=== PATIENT | male | born 1935 | race Caucasian/White ===

== ENCOUNTER → 2024-06-05 | Outpatient (CLI) | payer MEDICARE, BC, SELFPAY ==
[2024-06-05 16:47] LABS: INR 2.4 (0.9-1.3); Prothrombin Time 24.7 Seconds (9.0-12.2)
== END | disposition home or self-care (01) ==
LOC: COPL 14:21
PROVIDERS: PCP Family Medicine; Referring Provider Internal Medicine Cardiovascular Disease; Visit Provider Internal Medicine Cardiovascular Disease
DX: I48.20 Chronic atrial fibrillation, unspecified (principal); I10 Essential (primary) hypertension; I25.118 Atherosclerotic heart disease of native coronary artery with other forms of angina pectoris
CPT/HCPCS: 36415; 85610

== ENCOUNTER → 2024-07-30 | Outpatient (CLI) | payer MEDICARE, BC, SELFPAY ==
--- NOTE | 2024-07-30 14:58 | XR_ITS ---
Examination: Shoulder,left, 3 views Technique: Shoulder AP internal rotation, AP external rotation, Y view shoulder, 3 views Exam date and time :July 30, 2024 1501 hours INDICATIONS: Left shoulder pain 20 years. FINDINGS: Prominent osteopenia No shoulder fracture or dislocation Severe narrowing and osteoarthritis glenohumeral joint Mild calcific tendinitis IMPRESSION: Severe narrowing and osteoarthritis glenohumeral joint
--- NOTE | 2024-07-30 14:58 | XR_ITS ---
Examination:Right hip AP, lateral, AP pelvis 3 views Technique: Hip AP lateral, AP pelvis, 3 views Exam date and time:July 30, 2024 1501 hours INDICATIONS: Patient fell 5 months ago with injury to the hips, hip pain FINDINGS: Moderate osteopenia Moderate bilateral hip osteoarthritis No hip or pelvic fracture IMPRESSION: No hip or pelvic fracture.
[2024-07-30 15:29] LABS: Basophils % (Auto) 1 % (0-2.5); Eosinophils # (Auto) 0.1 Thou/mm3 (0.0-0.5); Eosinophils % (Auto) 2 % (0-10); Hematocrit 35.1 % (41.0-53.0); Hemoglobin 11.4 g/dL (13.5-16.0); Immature Granulocytes % (Auto) 0 % (0-0); Immature Granulocytes Auto 0.02 Thou/mm3 (0.00-0.00); Lymphocytes # (Auto) 2.1 Thou/mm3 (1.0-4.8); Lymphocytes % (Auto) 39 % (10-50); Mean Corpuscular HGB Conc 32.5 g/dl (31.0-37.0); Mean Corpuscular Hemoglobin 32.6 pg (25.0-35.0); Mean Corpuscular Volume 100 fL (80-100); Monocytes # (Auto) 0.6 Thou/mm3 (0.0-0.8); Monocytes % (Auto) 10 % (0-12); Neutrophils # (Auto) 2.6 Thou/mm3 (1.8-7.7); Neutrophils % (Auto) 48 % (37-80); Nucleated Red Blood Cell % 0 /100 WBC (0); Platelet Count 195 Thou/mm3 (140-440); RDW Standard Deviation 51.6 fL (35.1-43.9); White Blood Count 5.4 Thou/mm3 (3.8-10.6)
[2024-07-30 15:40] LABS: INR 2.8 (0.9-1.3); Prothrombin Time 28.7 Seconds (9.0-12.2)
== END | disposition home or self-care (01) ==
LOC: COPL 14:24 → CDIM 14:24
PROVIDERS: PCP Family Medicine; Referring Provider Family Medicine; Visit Provider Family Medicine
DX: M25.552 Pain in left hip (principal); M25.551 Pain in right hip; M19.012 Primary osteoarthritis, left shoulder; M25.812 Other specified joint disorders, left shoulder; D50.8 Other iron deficiency anemias; S79.912S Unspecified injury of left hip, sequela; S79.911S Unspecified injury of right hip, sequela; W19.XXXS Unspecified fall, sequela
CPT/HCPCS: 36415; 73030; 73502; 85025; 85610

== ENCOUNTER 2024-08-10 17:14 | Emergency (ER) | payer MEDICARE, BC, SELFPAY ==
--- NOTE | 2024-08-10 18:31 | PD.EDADULT ---
ED General RME/HPI General Stated complaint: HYPOXIA Time Seen by Provider: 08/10/24 18:01 Arrival date/time: 08/10/24 17:14 RME / HPI RME / HPI narrative: 89-year-old male patient with significant history of diabetes mellitus hypertension, chronic A-fib, was brought in by EMS for evaluation regarding hypoxia. Apparently patient is having worsening cough, shortness of breath, when the EMS arrived patient was noted to be satting less than 90%. Patient told me that he feels sick also with flulike symptoms for the last 1 week. He had a history of chronic cough for more than 6 months, getting worst for the last 1 week. Patient denies any chest pain. Denies any other complaints. Was seen by PCP, and was started on doxycycline and Zyrtec today. Related Data Home Medications ?Medication ?Instructions ?Recorded ?Confirmed docusate sodium 100 mg capsule 100 mg PO BID PRN Constipation 11/01/22 11/01/22 glipizide 5 mg tablet 5 mg PO BID 11/01/22 11/01/22 lisinopril 10 mg tablet 10 mg PO DAILY 11/01/22 11/01/22 omeprazole 20 mg capsule,delayed 20 mg PO DAILY 11/01/22 11/01/22 release sennosides 17.2 mg tablet (Senokot 17.2 mg PO BID 11/01/22 11/01/22 Extra Strength) warfarin 2.5 mg tablet 2.5 mg PO DAILY 11/01/22 11/01/22 Allergies Allergy/AdvReac Type Severity Reaction Status Date / Time No Known Allergies Allergy Verified 05/17/23 17:36 Review of Systems Review of Systems Narrative Review of Systems: Review of system reviewed and within normal limits except mentioned in HPI ED Exam Narrative Physical exam: VITAL SIGNS: Reviewed. GENERAL APPEARANCE: Alert and interactive, follows commands, no acute distress, HEAD AND FACE: Non-traumatic. ENT: PERRL, pink conjunctivitis, eyelid no trauma, Mucous membrane moist. NECK: Supple, nontender, no nuchal rigidity. CHEST: No tenderness, no crepitus, no paradoxical movement, no retractions. LUNGS: Clear, well ventilated, symmetric, no rales, no wheezing, no ronchi, no stridor, good breath sounds bilaterally. HEART: Regular rate, regular rhythm, no murmur, no gallops. ABDOMEN: Soft, positive bowel sounds, nondistended, no guarding, nontender, no rebound, no masses, RECTAL: Deferred. GENITAL: Deferred. NEUROLOGICAL: Gross motor function intact sensory function intact, Appropriate for age. MUSCULOSKELETAL: low back nontender, full range of motion. EXTREMITIES: Nontender, full range of motion. SKIN: Color pink, dry, no rash, no lacerations, no abrasions, no contusions. LYMPHATICS: Deferred. Course Quality Measures none Orders Category Date Time Status Bedside COVID-19 Antigen Test NOW Care 08/10/24 18:36 Completed Bedside Influenza A&B Antigen Test NOW Care 08/10/24 18:36 Completed Scrub Technician STAT Care 08/10/24 18:36 Completed Continuous Pulse Oximetry STAT Care 08/10/24 18:36 Completed EKG (ED ONLY) *Do not use* NOW Care 08/10/24 18:36 Completed In and Out Catheter X1PRN Care 08/10/24 18:36 Completed Insert IV NOW Care 08/10/24 18:36 Completed NPO STAT Care 08/10/24 18:36 Completed Strict Intake and Output Routine Care 08/10/24 18:36 Ordered EKG (ED Only) Stat Exams 08/10/24 18:36 Draft XR chest 1V SEPSIS PROTOCOL Stat Exams 08/10/24 18:36 Completed B-Type Natriuretic Peptide Stat Lab 08/10/24 17:49 Completed Blood Culture (Lab) Stat Lab 08/10/24 18:55 Received CBC Stat Lab 08/10/24 17:49 Completed Comprehensive Metabolic Panel Stat Lab 08/10/24 17:49 Completed LDH (Lactate Dehydrogenase) Stat Lab 08/10/24 17:49 Completed Lactate (Lactic Acid) Stat Lab 08/10/24 17:49 Completed Lipase Stat Lab 08/10/24 17:49 Completed Magnesium Stat Lab 08/10/24 17:49 Completed Partial Thromboplastin Time Stat Lab 08/10/24 17:49 Completed Phosphorous Stat Lab 08/10/24 17:49 Completed Procalcitonin Stat Lab 08/10/24 17:49 Completed Prothrombin Time with INR Stat Lab 08/10/24 17:49 Completed Troponin I Stat Lab 08/10/24 17:49 Completed Oxygen Delivery NOW RT 08/10/24 18:36 Completed Vital Signs Vital signs: Vital Signs Temperature 99.7 F 08/10/24 19:08 Pulse Rate 88 08/10/24 19:08 Respiratory Rate 27 H 08/10/24 19:08 Blood Pressure 118/101 H 08/10/24 19:08 Pulse Oximetry (%) 95 08/10/24 19:08 Oxygen Flow Rate 2 08/10/24 19:08 MDM Patient data External records reviewed:: None Clinical information provided by:: patient and family Social determinants that could affect healthcare access:: none Patient has the following chronic illnesses:: Diabetes mellitus hypertension How is presenting disease/condition affected by chronic disease/condition?: exacerbated by Evaluation data The following diagnostics were reviewed and interpreted by me:: lab results, radiology exam(s) and EKG tracing(s) Lab and/or radiology exams considered but not ordered:: None Interpretation Summary: Patient AMA Medications Medications considered but not ordered:: None Medication administrations:: None Consultations Consultation(s) initiated? (list below): No Diagnosis Differential Diagnosis ED Complaint MDM: Shortness of breath, pneumonia, hypoxia Most likely diagnosis given after review of the tests above:: Shortness of breath Admission Indicated Admission indicated?: not indicated Explain why admission is indicated or not indicated:: Patient AMA Admission Request Was there a request for admission?: No Disposition Plan Disposition Plan: other (specify) (Patient AMA) Medical Decision Making MDM Narrative MDM Narrative: 89-year-old male patient with significant history of diabetes mellitus hypertension, chronic A-fib, was brought in by EMS for evaluation regarding hypoxia. Apparently patient is having worsening cough, shortness of breath, when the EMS arrived patient was noted to be satting less than 90%. Patient told me that he feels sick also with flulike symptoms for the last 1 week. He had a history of chronic cough for more than 6 months, getting worst for the last 1 week. Patient denies any chest pain. Denies any other complaints. Was seen by PCP, and was started on doxycycline and Zyrtec today. Pt has normal mental status and adequate capacity to make medical decisions. Oriented x 4. The patient refuses evaluation and treatment and wants to be discharged. The risks have been explained to the patient, including progression of possible worsening of current disease, worsening illness, chronic pain, permanent disability and . The benefits of evaluation and treatment have also been explained, including the availability and proximity of nurses, physicians, monitoring, diagnostic testing, and treatments. The patient was able to understand and state the risks and benefits of AMA.Patient had the opportunity to ask questions about their medical condition. He left hospital against medical advice. Differential Diagnosis Differential Diagnosis: Shortness of breath, pneumonia, hypoxia Lab Data 08/10/24 17:49 08/10/24 17:49 Labs: Lab Results 08/10/24 Range/Units 17:49 WBC 4.6 (3.8-10.6) Thou/mm3 RBC 3.73 L (4.50-5.90) Miln/mm3 Hgb 12.3 L (13.5-16.0) g/dL Hct 37.2 L (41.0-53.0) % MCV 100 (80-100) fL MCH 33.0 (25.0-35.0) pg MCHC 33.1 (31.0-37.0) g/dl RDW Std Deviation 51.0 H (35.1-43.9) fL Plt Count 162 D (140-440) Thou/mm3 Neut % (Auto) 77 (37-80) % Lymph % (Auto) 16 (10-50) % [place] % (Auto) 7 (0-12) % Eos % (Auto) 0 (0-10) % Baso % (Auto) 0 (0-2.5) % Neut # (Auto) 3.5 (1.8-7.7) Thou/mm3 Lymph # (Auto) 0.7 L (1.0-4.8) Thou/mm3 [place] # (Auto) 0.3 (0.0-0.8) Thou/mm3 Eos # (Auto) 0.0 (0.0-0.5) Thou/mm3 Baso # (Auto) 0.0 (0.0-0.2) Thou/mm3 Immature Gran # (Auto) 0.00 (0.00-0.00) Thou/mm3 Absolute Nucleated RBC 0.00 (0.00-0.00) Thou/mm3 Immature Gran % 0 (0-0) % Nucleated RBC % 0 (0) /100 WBC PT 24.8 H D (9.0-12.2) Seconds INR 2.4 H (0.9-1.3) APTT 38.2 H (22.0-36.0) Seconds Sodium 137 (136-145) mMol/L Potassium 4.3 (3.4-5.1) mMol/L Chloride 103 (98-107) mMol/L Carbon Dioxide 25.0 (20.0-31.0) mMol/L Anion Gap 9 (7-16) BUN 26 H (9-23) mg/dL Creatinine 1.1 (0.6-1.3) mg/dL Estim Creat Clear Calc 53.5 L (>60) mL/min eGFR > 60 (60 - ) See Note BUN/Creatinine Ratio 24 H (12-20) Ratio Glucose 152 H (74-106) mg/dL Calculated Osmolality 281 (275-295) Lactic Acid 1.4 (0.4-2.0) mMol/L Calcium 9.3 (8.3-10.6) mg/dL Corrected Calcium 9.3 (8.5-10.1) mg/dL Phosphorus 2.9 (2.4-5.1) mg/dL Magnesium 2.0 (1.6-2.6) mg/dL Total Bilirubin 2.0 H (0.3-1.2) mg/dL AST 46 H (0-34) U/L ALT 39 (10-49) U/L Alkaline Phosphatase 136 H (46-116) U/L Lactate Dehydrogenase 299 H (120-246) U/L Troponin I 0.082 H* (0.0-0.045) ng/mL B-Natriuretic Peptide 714 H* (0-100) pg/mL Total Protein 8.1 (5.7-8.2) gm/dL Albumin 4.5 (3.4-4.8) gm/dL Globulin 3.6 H (2.3-3.5) gm/dL Albumin/Globulin Ratio 1.3 (1.2-2.2) Lipase 26 (12-53) U/L Procalcitonin 0.22 (0.0-0.49) ng/ml Discharge Plan Plan Patient Disposition: Left Against Medical Advice Prescriptions/Referrals Prescriptions/Med Rec: No Action warfarin 2.5 mg tablet 2.5 mg PO DAILY Patient Comments: TAKE 1 TABLET BY MOUTH ONCE DAILY docusate sodium 100 mg capsule 100 mg PO BID PRN (Reason: Constipation) Patient Comments: TAKE 1 CAPSULE BY MOUTH TWICE DAILY NEEDED FOR 30 DAYS omeprazole 20 mg capsule,delayed release(DR/EC) 20 mg PO DAILY Patient Comments: TAKE 1 CAPSULE BY MOUTH ONCE DAILY 30 MINUTES BEFORE MORNING MEAL glipizide 5 mg tablet 5 mg PO BID Patient Comments: TAKE 1 TABLET BY MOUTH TWICE DAILY 30 MINUTES BEFORE A MEAL Senokot Extra Strength 17.2 mg Tablet 17.2 mg PO BID lisinopril 10 mg tablet 10 mg PO DAILY Referrals: Chris Osei MD [Primary Care Provider] - In 1 week Problem List Clinical Impression: Shortness of breath Patient/Caregiver Discharge Instructions Print Language: Kinyarwanda
--- NOTE | 2024-08-10 18:36 | XR_ITS ---
Examination: AP chest single view Technique one AP portable upright chest single view Exam date and time: August 10, 2024 1910 hrs. Comparison December 03, 2022 Indications: Sepsis protocol Findings: Mild CHF Moderate enlargement cardiac contour Prominent vascular congestion and perihilar edema No lobar pneumonia Impression: Mild CHF
--- NOTE | 2024-08-10 18:36 | EKG_ITS ---
[facility] Test Date: 2024-08-10 Pat Name: ALIVIA MORALES Department: Room: - Gender: Male Engineer Process: : 1935 Requested By: Kelsey Ulrich Order Number: [id number] Reading MD: Kelsey Ulrich Measurements Intervals [place] Rate: 90 P: ND: QRS: 206 QRSD: 96 T: 53 QT: 365 QTc: 448 Interpretive Statements ATRIAL FIBRILLATION WITH ABERRANT CONDUCTION OR VENTRICULAR PREMATURE COMPLEXES POSSIBLE RIGHT VENTRICULAR HYPERTROPHY [SOME/ALL OF: PROMINENT R IN V1, LATE TRANSITION, RAD, MADDY, SSS] ANTEROSEPTAL MYOCARDIAL INFARCTION , OF INDETERMINATE AGE [40+ ms Q WAVE IN V1-V4] Compared to ECG 12/04/2022 00:07:03 Ventricular premature complex(es) now present Aberrant conduction of supraventricular beat(s) now present Left-axis deviation no longer present Myocardial infarct finding still present /store/S0/[id number]/[id number].pdf
[2024-08-10 18:59] LABS: Basophils % (Auto) 0 % (0-2.5); Eosinophils % (Auto) 0 % (0-10); Hematocrit 37.2 % (41.0-53.0); Hemoglobin 12.3 g/dL (13.5-16.0); Immature Granulocytes % (Auto) 0 % (0-0); Lymphocytes # (Auto) 0.7 Thou/mm3 (1.0-4.8); Lymphocytes % (Auto) 16 % (10-50); Mean Corpuscular HGB Conc 33.1 g/dl (31.0-37.0); Mean Corpuscular Volume 100 fL (80-100); Monocytes # (Auto) 0.3 Thou/mm3 (0.0-0.8); Monocytes % (Auto) 7 % (0-12); Neutrophils # (Auto) 3.5 Thou/mm3 (1.8-7.7); Neutrophils % (Auto) 77 % (37-80); Nucleated Red Blood Cell % 0 /100 WBC (0); Platelet Count 162 Thou/mm3 (140-440); Red Blood Count 3.73 Miln/mm3 (4.50-5.90); White Blood Count 4.6 Thou/mm3 (3.8-10.6)
[2024-08-10 19:08] VITALS: BP 118/101; PULSE 88; PULSE 96; RESP 27; RESP 29; RESP 93; TEMP 37.6; O2SAT 88; O2SAT 95; O2SAT 96; BMI 27.7
[2024-08-10 19:08] LABS: Lactate (Lactic Acid) 1.4 mMol/L (0.4-2.0)
[2024-08-10 19:12] VITALS: BP 118/101; PULSE 93; RESP 20; TEMP 37.8; O2SAT 88
[2024-08-10 19:14] VITALS: O2SAT 99
[2024-08-10 19:32] LABS: INR 2.4 (0.9-1.3); Partial Thromboplastin Time 38.2 Seconds (22.0-36.0); Prothrombin Time 24.8 Seconds (9.0-12.2)
[2024-08-10 19:56] LABS: Alanine Aminotransferase 39 U/L (10-49); Albumin, Serum 4.5 gm/dL (3.4-4.8); Albumin/Globulin Ratio 1.3 (1.2-2.2); Alkaline Phosphatase 136 U/L (46-116); Anion Gap 9 (7-16); Aspartate Amino Transferase 46 U/L (0-34); B-Type Natriuretic Peptide 714 pg/mL (0-100); BUN/Creatinine Ratio 24 Ratio (12-20); Blood Urea Nitrogen 26 mg/dL (9-23); Calcium 9.3 mg/dL (8.3-10.6); Calcium (Corrected) 9.3 mg/dL (8.5-10.1); Chloride 103 mMol/L (98-107); Creatinine (Component) 1.1 mg/dL (0.6-1.3); Estimated Creatinine Clearance 53.5 mL/min (>60); Globulin 3.6 gm/dL (2.3-3.5); Glucose 152 mg/dL (74-106); LDH (Lactate Dehydrogenase) 299 U/L (120-246); Lipase 26 U/L (12-53); Osmolality,Calculated 281 (275-295); Phosphorous 2.9 mg/dL (2.4-5.1); Potassium 4.3 mMol/L (3.4-5.1); Procalcitonin 0.22 ng/ml (0.0-0.49); Sodium 137 mMol/L (136-145); Total Protein 8.1 gm/dL (5.7-8.2); eGFR > 60 See Note
[2024-08-10 20:00] LABS: Troponin I 0.082 ng/mL (0.0-0.045)
--- NOTE | 2024-08-10 20:19 | PC.NURSE ---
Pt. wants to leave AMA. States he does not want to be here. Pt. oxygen level is 86 on RA and pt. is struggling to breath. Pt. states he was dx with Pneumonia and started Doxyccyline but it made him nauseaus so he only took one This nurse talked to pt. explaining risks of leaving along with ER provider, who is at and his son, who is a RN in [place]. Grandson also spoke to him but pt. still wants to leave. Pt. understands he can if he goes home. AMA paperwork done.
--- NOTE | 2024-08-10 20:48 | PC.NURSE ---
Critical lab called: Troponin 0.082. Pt aready left AMA
== END 2024-08-10 20:25 | disposition left against medical advice (07) ==
LOC: SERX 18:13
PROVIDERS: Nurse Practitioner Family; Emergency Provider Emergency Medicine; PCP Family Medicine
DX: R06.02 Shortness of breath (principal); R05.3 Chronic cough; R09.02 Hypoxemia; E11.9 Type 2 diabetes mellitus without complications; I10 Essential (primary) hypertension; I48.20 Chronic atrial fibrillation, unspecified; Z53.29 Procedure and treatment not carried out because of patient's decision for other reasons
CPT/HCPCS: 36415; 71045; 80053; 81001; 83605; 83615; 83690; 83735; 83880; 84100; 84145; 84484; 85025; 85610; 85730; 87040; 87086; 87400; 87634; 87811; 93005; 99283

== ENCOUNTER 2024-08-11 10:21 | Inpatient (IN) | payer MEDICARE, BC, SELFPAY ==
[2024-08-11] VITALS (12 sets, daily range): BP systolic 132–166; BP diastolic 1–95; PULSE 82–99; RESP 16–21; TEMP 36.7–37.7; O2SAT 92–100; BMI 28.8
--- NOTE | 2024-08-11 10:47 | EKG_ITS ---
[facility] Test Date: 2024-08-11 Pat Name: ALIVIA MORALES Department: Room: - Gender: Male Critical Care Physician Assistant: : 1935 Requested By: ED Temporary Provider Order Number: [id number] Reading MD: ED Temporary Provider Measurements Intervals [place] Rate: 82 P: MT: QRS: 205 QRSD: 100 T: 92 QT: 380 QTc: 445 Interpretive Statements ATRIAL FIBRILLATION PATTERN CONSISTENT WITH PULMONARY DISEASE INCOMPLETE RIGHT BUNDLE BRANCH BLOCK [90+ ms QRS DURATION, TERMINAL R IN V1/V2, 40+ ms S IN I/aVL/V4/V5/V6] POSSIBLE RIGHT VENTRICULAR HYPERTROPHY [SOME/ALL OF: PROMINENT R IN V1, LATE TRANSITION, RAD, MADDY, SSS] SEPTAL MYOCARDIAL INFARCTION , PROBABLY OLD [40+ ms Q WAVE IN V1/V2] Compared to ECG 08/10/2024 18:58:54 Incomplete right bundle-branch block now present Ventricular premature complex(es) no longer present Aberrant conduction of supraventricular beat(s) no longer present Myocardial infarct finding still present /store/S0/[id number]/[id number].pdf
--- NOTE | 2024-08-11 10:53 | PC.NURSE ---
BIBA FROM HOME FOR COUGH, FEVER AFTER LEAVING HOSPITAL YESTERDAY PRIOR TO ADMISSION FOR SEPSIS. HX OF A-FIB, HTN, GERD, BPH AND DIABETES WITH NKA. GCS 15 AND ABLE TO AMBULATE WITH ASSISTANCE.
--- NOTE | 2024-08-11 11:26 | XR_ITS ---
Examination: CT chest, without intravenous contrast. Sagittal and coronal 2-D reconstructions. Exam date and time: August 11, 2024 at 1235 hrs. Indications: Shortness of breath sepsis today congestion chest pain CTDI:vol (mGy) 13.3 DLP: (mGycm) 163 Technique: Multiple 3.0 mm axial sections of the chest to been obtained. Bone and lung density settings are obtained. Sagittal and coronal 2-D reconstructions have been obtained. Low dose protocols were performed. One or more of the following dose reduction techniques were used; automated exposure control, adjustment of the mA and/or KV according to patient size, use of iterative reconstruction technique. Findings: Thoracic aortic calcification no aneurysmal dilatation Multiple tracheobronchial precarinal lymph nodes No thoracic aortic aneurysm dilatation Pulmonary artery segments are not enlarged. Mild to moderate enlargement cardiac contour Moderate calcification left anterior descending coronary artery Moderate vascular congestion Soft areas of pneumonia in both lungs, most prominent left base Minimal free fluid subcapsular to the spleen No hydronephrosis No pancreatic mass Contracted gallbladder Impression: Mediastinal lymphadenopathy as above Soft areas of pneumonia both lungs, most prominent left base
--- NOTE | 2024-08-11 11:28 | EDNOTE_ITS ---
<Statement entered by Mary Mcdonough MD - 08/14/24 14:07> As co-signing physician, I was present and available for consult prn. I concur with the plan and care as documented by the midlevel provider. ED SOB =RME/HPI General Chief Complaint: Shortness of Breath/Dyspnea Stated Complaint: SEPSIS Time Seen by Provider: 08/11/24 11:16 Arrival date/time: 08/11/24 10:21 RME / HPI RME / HPI Narrative: 89-year-old male patient with significant history of hypertension, diabetes mellitus, chronic A-fib, was brought in by family for evaluation regarding shortness of breath. Patient has been having worsening shortness of breath for the last few days, yesterday patient was brought here by EMS for hypoxia. Patient signed AGAINST MEDICAL ADVICE last night. Patient came back again today because of worsening shortness of breath and not feeling well. According to him he is coughing worst today. Patient denies any fever denies any chest pain denies any other complaints. No medication was taken prior to arrival. With the patient arrived patient was satting 86% on room air when the EMS picked him up. Related Data Home Medications ?Medication ?Instructions ?Recorded ?Confirmed docusate sodium 100 mg capsule 100 mg PO BID PRN Const ipation 11/01/22 11/01/22 glipizide 5 mg tablet 5 mg PO BID 11/01/22 3 lisinopril 10 mg tablet 10 mg PO DAILY 11/01/2207/26 omeprazole 20 mg capsule,delayed 20 mg PO DAILY 11/01/22 release sennosides 17.2 mg tablet (Senokot 17.2 mg PO BID 07/2611/01/22 Extra Strength) warfarin 2.5 mg tablet 2.5 mg PO DAILY 11/01/2207/26 Allergies Allergy/AdvReac Type Severity Reaction Status Date / Time No Known Allergies Allergy Verified 08/11/24 10:42 Review of Systems Review of Systems Narrative Review of Systems: Review of system reviewed and within normal limits except mentioned in HPI ED Exam Narrative Physical exam: VITAL SIGNS: Reviewed. GENERAL APPEARANCE: Alert and interactive, follows commands, no acute distress, HEAD AND FACE: Non-traumatic. ENT: PERRL, pink conjunctivitis, eyelid no trauma, Mucous membrane moist. NECK: Supple, nontender, no nuchal rigidity. CHEST: No tenderness, no crepitus, no paradoxical movement, no retractions. LUNGS:Symmetric, + bibasal rales, no wheezing, no ronchi, no stridor, decreased breath sounds bilaterally. HEART: Regular rate, regular rhythm, no murmur, no gallops. ABDOMEN: Soft, positive bowel sounds, nondistended, no guarding, nontender, no rebound, no masses, RECTAL: Deferred. GENITAL: Deferred. NEUROLOGICAL: Gross motor function intact sensory function intact, Appropriate for age. MUSCULOSKELETAL: low back nontender, full range of motion. EXTREMITIES: Nontender, full range of motion. SKIN: Color pink, dry, no rash, no lacerations, no abrasions, no contusions. LYMPHATICS: Deferred. Course Quality Measures none Orders Category Date Time Status Bedside COVID-19 Antigen Test NOW Care 08/11/24 11:27 Active Bedside Influenza A&B Antigen Test NOW Care 08/11/24 11:27 Completed COVID-19 Screening Questionnaire NOW Care 08/11/24 14:13 Active Decision to Admit X1 Care 08/11/24 14:12 Active EKG (ED ONLY) *Do not use* NOW Care 08/11/24 10:47 Completed EKG (ED ONLY) *Do not use* NOW Care 08/11/24 11:[address] chest wo con Stat Exams 08/11/24 11:26 Taken EKG (ED Only) Stat Exams 08/11/24 10:47 Draft EKG (ED Only) Stat Exams 08/11/24 11:26 Ordered B-Type Natriuretic Peptide Stat Lab 08/11/24 11:44 Completed Blood Culture (Lab) Stat Lab 08/11/24 11:39 Received Lactate (Lactic Acid) Stat Lab 08/11/24 11:44 Completed Partial Thromboplastin Time Stat Lab 08/11/24 11:44 Completed Prothrombin Time with INR Stat Lab 08/11/24 11:44 Completed RSV [Respiratory Syncytial Virus Ag] Stat Lab 08/11/24 13:00 Completed VBG [Venous Blood Gas] Stat Lab 08/11/24 11:44 Completed Furosemide Inj [Lasix Inj] Med 08/11/24 11:27 Discontinued 40 mg IVP X1 ONE Vital Signs Vital signs: Vital Signs Temperature 98.4 F 08/11/24 10:22 Pulse Rate 92 08/11/24 10:22 Respiratory Rate 18 08/11/24 10:22 Blood Pressure 152/82 H 08/11/24 10:22 Pulse Oximetry (%) 95 08/11/24 10:22 Oxygen Delivery Method Oxy Mask 08/11/24 10:22 Oxygen Flow Rate 2 08/11/24 10:22 Shortness of Breath / Dyspnea [facility] Narrative [facility] Narrative:: 89-year-old male patient with significant history of hypertension, diabetes mellitus, chronic A-fib, was brought in by family for evaluation regarding shortness of breath. Patient has been having worsening shortness of breath for the last few days, yesterday patient was brought here by EMS for hypoxia. Patient signed AGAINST MEDICAL ADVICE last night. Patient came back again today because of worsening shortness of breath and not feeling well. According to him he is coughing worst today. Patient denies any fever denies any chest pain denies any other complaints. No medication was taken prior to arrival. With the patient arrived patient was satting 86% on room air when the EMS picked him up. Laboratory workup is significant for BNP of 825, patient tested positive for RSV. EKG showed atrial fibrillation, ventricular rate of 82 bpm, QRS duration 100 MS, no ST segment elevation depression noted. CT chest showed multifocal pneumonia pneumonitis, moderate cardiomegaly without evidence of cardiac failure, trace ascites in the upper abdomen. Results discussed with the family. Patient received IV Lasix. Case discussed with hospitalist, Dr. Hernandez , who admitted the patient. Patient data External records reviewed:: [facility] previous records Clinical information provided by:: family Social determinants that could affect healthcare access:: none Patient has the following chronic illnesses:: History of chronic A-fib, diabetes mellitus, hypertension How is presenting disease/condition affected by chronic disease/condition?: exacerbated by Evaluation data The following diagnostics were reviewed and interpreted by me:: lab results, radiology exam(s) and EKG tracing(s) Lab and/or radiology exams considered but not ordered:: None Interpretation Summary: See results in MDM Medications / Prescriptions Medications or Prescriptions considered but not ordered:: None Medication administrations:: Medication Administration History Discontinued Medications Furosemide (Furosemide Inj 10 Mg/Ml 4ml Vial) 40 mg IVP X1 ONE Stop: 08/11/24 11:28 Last Admin: 08/11/24 12:01 Dose: 40 mg Documented By: DARVIN Dias IV Consultations Consultation(s) initiated? (list below): No Consultation #1 (Physician, Specialty, Details): None Diagnosis Shortness of Breath Differential Diagnosis: acute exacerbation of chronic obstructive airways disease, congestive heart failure and community acquired pneumonia Most likely diagnosis given after review of the tests above:: New onset congestive heart failure, RSV infection, hypoxia Admission Indicated Admission indicated?: indicated Explain why admission is indicated or not indicated:: Patient is to be admitted due to hypoxia Admission Request Was there a request for admission?: Yes Admission Attestation Admission request attestation: Discussed case with [Dr Hernandez] from Hospitalist service regarding admission. Discussed patients ED course, exam findings, labs, and radiology results. The Hospitalist [agrees to accept the patient for admission. Disposition Plan Disposition Plan: Admit Discharge Plan Plan Patient Disposition: Admit Acute Care w/in Hospital Disposition Comment: Stable Prescriptions/Referrals Prescriptions/Med Rec: No Action warfarin 2.5 mg tablet 2.5 mg PO DAILY Patient Comments: TAKE 1 TABLET BY MOUTH ONCE DAILY docusate sodium 100 mg capsule 100 mg PO BID PRN (Reason: Constipation) Patient Comments: TAKE 1 CAPSULE BY MOUTH TWICE DAILY NEEDED FOR 30 DAYS omeprazole 20 mg capsule,delayed release(DR/EC) 20 mg PO DAILY Patient Comments: TAKE 1 CAPSULE BY MOUTH ONCE DAILY 30 MINUTES BEFORE MORNING MEAL glipizide 5 mg tablet 5 mg PO BID Patient Comments: TAKE 1 TABLET BY MOUTH TWICE DAILY 30 MINUTES BEFORE A MEAL Senokot Extra Strength 17.2 mg Tablet 17.2 mg PO BID lisinopril 10 mg tablet 10 mg PO DAILY Referrals: Chris Osei MD [Primary Care Provider] - In 1 week Problem List Clinical Impression: Hypoxia, New onset of congestive heart failure, RSV infection Patient/Caregiver Discharge Instructions Print Language: Mosotho Stand Alone Forms: Natty Award Info., Patient Portal Info Letter
[2024-08-11 11:48] LABS: Base Excess, Venous 1 (-3-3); O2 Saturation, Venous 92 % (96-97); PCO2, Venous 29 mmHg (36-56); PO2, Venous 53 mmHg (15-58); pH, Venous 7.51 (7.33-7.66)
[2024-08-11 11:49] LABS: Lactate (Lactic Acid) 1.6 mMol/L (0.4-2.0)
--- NOTE | 2024-08-11 11:54 | PC.NURSE ---
UPON ARRIVAL PATIENT INITIAL O2 SAT ON ROOM air was 87%
[2024-08-11] MEDS: FUROSEMIDE INJ 10 MG/ML 4ML VIAL 40 MG IVP (12:01)
[2024-08-11 12:14] LABS: INR 2.5 (0.9-1.3); Partial Thromboplastin Time 39.3 Seconds (22.0-36.0); Prothrombin Time 25.4 Seconds (9.0-12.2)
[2024-08-11 12:19] LABS: B-Type Natriuretic Peptide 825 pg/mL (0-100)
--- NOTE | 2024-08-11 13:12 | PRELIM_ITS ---
CT scan of the chest without intravenous contrast (axial sections with sagittal and coronal reformats) August 11, 2024 at 1233 hours Clinical History: Shortness of breath Comparison: No prior study is available for comparison. Findings: The evaluation is slightly limited due to motion artifact. The lungs demonstrate peribronchia interstitial thickening. There are multiple nodular infiltrates and ground-glass opacities in the right upper lobe and superior segments of bilateral lower lobes. Bibasilar streaky atelectasis is present. No evidence of pleural effusion or pneumothorax. There are subcentimeter mediastinal lymph nodes in the prevascular, right paratracheal and pretracheal region. The thoracic aorta demonstrates atheromatous calcification without evidence of aneurysm. There is moderate cardiomegaly. Coronary artery calcification is noted. There is no pericardial effusion. A small hiatal hernia is present. Degenerative changes are identified in the spine. There is diffuse osteopenia. The gallbladder is contracted. There is trace perihepatic and perisplenic free fluid. The other visualized upper abdominal viscera are unremarkable on this noncontrast study. Impression: 1. Findings suggestive of multifocal pneumonitis as described. 2. Moderate cardiomegaly without evidence of cardiac failure. 3. Trace ascites in the upper abdomen. 4. Other findings as described above. Report Electronically Signed By: Robert Bains 08/11/2024 1:12:03 PM [EST]
[2024-08-11 13:54] LABS: Respiratory Syncytial Virus Ag Positive (Negative)
--- NOTE | 2024-08-11 14:24 | PC.NURSE ---
Patient states chest/back pain 02/10 informed ER provider and received verbal order for 50mcg Fentanyl IV
[2024-08-11] MEDS: fentaNYL CIT INJ 50 mCg/ML AMP 2ML IVP (14:38)
--- NOTE | 2024-08-11 15:30 | PD.RESHP ---
Documentation for date of: 08/11/24 [facility] History of Present Illness History of present illness: The patient is an 89-year-old male with a past medical history of hypertension, hyperlipidemia, type II DM, ?valvular heart disease, pulmonary nodules, BPH atrial fibrillation on warfarin presented to the ED on 08/11/2024 complaints of shortness of breath and cough that had been going on for about a week. The patient was said to be in his usual state of health until about a week ago when he noticed that he had a cough which progressively got worse and with associated shortness of breath. Cough is described as productive with abundant sputum, mostly frothy white, with no blood and no offensive smell. He does mention that he has had a chronic cough for more than 6 months and has previously been seen by his PCP who started doxycycline Zyrtec. He also reports shortness of breath that initially started with intense physical activity but he now has it even with minimal physical activity. He denies chest pain, fever, palpitations, orthopnea or paroxysmal nocturnal dyspnea. He denies any sick contacts or travel history. The patient had initially presented to the ED yesterday 08/10/2024 for similar symptoms but left AGAINST MEDICAL ADVICE. As cough and shortness of breath worsening today, he presented again to the ED. ED course: In the ED, the patient was afebrile with some elevation in the blood pressure in the 140s. Labs from the day before showed WBC 4.6 Hgb 12.3 PLT 162 sodium 137 potassium 4.3 chloride 103 bicarb 25 BUN 26 creatinine 1.1 glucose 152 T. bili 2 AST 46 ALT 39 ALP 136 LDH 299 troponin 0.082 BNP 714, today 825 and negative Pro-Rafael. Coagulation profile showed a PT of 25.4 INR 2.5 APTT 39.3. An EKG was done which showed atrial fibrillation. COVID and influenza were negative but RSV was positive Chest CT was also done which shows some pneumonia and mediastinal lymphadenopathy. The patient continued to be hypoxic and was placed on 2 L of oxygen, given 1 dose of IV Lasix and has been admitted for observation acute hypoxic respiratory failure with viral pneumonia and possible CHF exacerbation. PMHx-hypertension, hyperlipidemia, type II DM, ?valvular heart disease, pulmonary nodules, atrial fibrillation, BPH PSHx-unknown Home meds-warfarin, glipizide, lisinopril Review of Systems Review of Systems Narrative Review of Systems: GENERAL: Denies fevers/chills or diaphoresis. HEENT: Denies headache or visual/hearing changes. Denies nasal discharge. NEURO: Denies unusual weakness or difficulty speaking. CARDIO: Denies chest pain or palpitations. PULM: Admits shortness of breath and coughing GI: Denies abdominal pain, N/V/C/D/reflux/gas, bright red blood per rectum or melena. Reports having BMs. URO: Denies burning/itching/pain/urinary changes. MSK/EXT/SKIN: Denies joint/skeletal/muscle pain, issues/changes in upper or lower extremities, itchiness, or superficial pain. PSYCH: Cooperative, pleasant mood & affect. 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 Eyes open, symmetrical, & clear CARDIO: No chest pain on palpation. Normal rate, irregular, diastolic murmur heard in the second intercostal space on the left PULM: Coughing, rhonchi heard, minimal crackles heard bilaterally, no wheeze. Nasal cannula in situ-2 L GI: Abdomen soft, nondistended, no pain on palpation. BSx4 URO/NIPPLE THREADER:: No further abnormalities noted. SKIN/MSK/EXT: No wounds/rashes/edema/amputations, no pain on palpation. Pedal pulses present B/L Results: Labs 08/12/24 03:08 08/12/24 03:08 ABG Interpretation ABG results: 08/11/24 11:44 VBG pH 7.51 VBG pCO2 29 L VBG pO2 53 VBG Base Excess 1 Quality Measures Quality Measures none Advance care planning discussed with:: patient and child Medications Home Medications and Allergies Home Medications ?Medication ?Instructions ?Recorded ?Confirmed ?Type docusate sodium 100 mg capsule 100 mg PO BID PRN Constipation 11/01/22 11/01/22 History glipizide 5 mg tablet 5 mg PO BID 11/01/22 08/11/24 History lisinopril 10 mg tablet 10 mg PO DAILY 11/01/22 11/01/22 History omeprazole 20 mg capsule,delayed 20 mg PO DAILY 11/01/22 08/11/24 History release sennosides 17.2 mg tablet (Senokot 17.2 mg PO BID 11/01/22 11/01/22 History Extra Strength) warfarin 2.5 mg tablet 4 mg PO DAILY 11/01/22 08/11/24 History ferrous sulfate 325 mg (65 mg 325 mg PO DAILY 08/11/24 08/11/24 History iron) tablet (FeroSul) furosemide 40 mg tablet 40 mg PO DAILY 08/11/24 08/11/24 History potassium chloride 20 mEq 20 meq PO DAILY 08/11/24 08/11/24 History tablet,extended release tamsulosin 0.4 mg capsule 0.4 mg PO DAILY 08/11/24 08/11/24 History Allergies Allergy/AdvReac Type Severity Reaction Status Date / Time No Known Allergies Allergy Verified 08/11/24 10:42 Visit Medications Acetaminophen (Acetaminophen 325 Mg Tablet) 650 mg PO Q6H PRN PRN Reason: Pain 1-3 or Fever >100.3 Stop: 09/10/24 15:09 Aspirin (Aspirin Ec 81 Mg Tabec) 81 mg PO QDAY [facility] Stop: 09/10/24 15:29 Azithromycin (Azithromycin 250 Mg Tablet) 250 mg PO QDAY [facility] Stop: 08/16/24 08:59 Furosemide (Furosemide Inj 10 Mg/Ml Vial 2 Ml) 20 mg IVP QDAY [facility] Stop: 09/11/24 08:59 Guaifenesin (Guaifenesin/P-Ephed Tablet) 1 tab PO BID [facility] Stop: 09/10/24 20:59 Ceftriaxone Sodium/Dextrose (Rocephin/D5w 1gm Iv Premix) 50 mls @ 100 mls/hr IV QDAY [facility] Stop: 08/18/24 15:19 Ondansetron HCl (Ondansetron Inj 2 Mg/Ml Inj 2 Ml) 4 mg IV Q6H PRN; Protocol PRN Reason: NAUSEA OR VOMITING Stop: 09/10/24 15:09 Promethazine HCl/Dextromethorphan (Promethazine/Dm Syrup 5 Ml Dose) 5 ml PO Q6HR PRN; Protocol PRN Reason: COUGH Stop: 09/10/24 15:19 Sennosides (Senna Tablet) 1 tab PO QDAY RONEL; Protocol Stop: 09/11/24 08:59 Discontinued Medications Azithromycin (Azithromycin 250 Mg Tablet) 500 mg PO X1 ONE Stop: 08/11/24 15:19 Fentanyl Citrate (Fentanyl Cit Inj 50 Mcg/Ml Amp 2ml) 50 mcg IVP X1 ONE Stop: 08/11/24 14:34 Last Admin: 08/11/24 14:38 Dose: 50 mcg Furosemide (Furosemide Inj 10 Mg/Ml 4ml Vial) 40 mg IVP X1 ONE Stop: 08/11/24 11:28 Last Admin: 08/11/24 12:01 Dose: 40 mg Sodium Chloride (Sodium Chloride Rt 10% 15 Ml Nebu) 5 ml INH X1 ONE Stop: 08/11/24 15:11 Assessment & Plan Assessment Summary: The patient is an 89-year-old male with a past medical history of hypertension, hyperlipidemia, type II DM, ?valvular heart disease, pulmonary nodules, BPH, A-fib on warfarin who presented to the ED on 08/11/2024 with complaints of shortness of breath and cough that have been going on for about a week. #Acute hypoxic respiratory failure #RSV pneumonia versus bacterial #CHF exacerbation The patient presented with a 1 week history of shortness of breath and nonproductive cough. He does mention that he has had a chronic cough for about 6 months which has gotten worse over the last week with associated shortness of breath that has made it difficult for him to do both his activities of daily living others. He initially presented yesterday but left AMA. COVID and influenza negative but RSV positive. BNP elevated at 825. Chest CT shows moderate vascular congestion with soft areas of pneumonia prominent in left base and mediastinal lymphadenopathy. Patient does not know about a history of heart failure but since having prescribed Lasix in the past. He is being followed by creative writing teacher Dr. Mcgee. No previous echocardiogram on file. Plan: -Admit to telemetry obs -IV ceftriaxone and azithromycin -IV Lasix 20 mg daily -Blood and sputum culture -Echocardiogram -Cardiology consulted, appreciate recommendations #Elevated troponin levels On presentation to the ED yesterday, labs showed elevated troponin of 0.08. Patient denies any chest pain. Plan: -Continue to trend troponins -Aspirin 81 mg daily #History of A-fib #History of ?valvular heart disease #Therapeutic INR The patient does mention that he has had a history of A-fib and while he is unsure thinks this is why he is on warfarin. He checks his INR monthly but does not remember what the last value was. EKG this admission shows atrial fibrillation, rate controlled. INR-2.5 CHADVASC- / HASBLED- 2/3 Plan: -Cardiology consulted -Continue to monitor #History of hypertension Patient has a history of hypertension is on lisinopril 20 mg daily. Blood pressure on admission-149/90. BUN from yesterday's labs 26. Will consider adding lisinopril once the labs are outside or alternative antihypertensive. Plan: -Continue to monitor blood pressure -P.o. hydralazine 10 mg for SBP greater than 160 #History of type II DM Patient has a history of type II DM and is on leukocyte 5 mg twice daily last A1c done about 4 months ago-6.9 Plan: -ISS -A1c -Blood glucose check AC -Hypoglycemic protocols in place #Likely history of liver cirrhosis The patient denies any history of alcohol. Abdominal CT from September 2023 showed cirrhosis with mild ascites. On labs, patient has elevated transaminases, hyperbilirubinemia and elevated ALP. Coagulation profile shows elevated PT and APTT. Plan: -Continue monitoring CMP #History of BPH Patient has a history of BPH confirmed by abdominal CT done which showed prostatomegaly. He is on tamsulosin 0.4 mg twice daily.. Plan: -Resume home meds Health maintenance: Dispo:Tele Obs Diet: Carb consistent/cardiac DVT: Warfarin (confirm dose) Lopez: None Lines: Peripheral Med Rec: Pending, f/u Code: Full Case was discussed with Dr Wilson PGY-2 and attending physician, Dr David Strong MD PGY-1 Disclaimer: This note was dictated by speech recognition. Minor errors in senior programmer may be present due to voice recognition software. Attending Provider Attestation/Addendum I reviewed labs, imaging, EKG, home medications and prior available records. Face to face evaluation was performed by me. I have personally examined the patient and discussed assessment and plan with the IM team. I reviewed the resident note and agree with the plan with exceptions as below. Acute hypoxic respiratory failure Elevated troponin Possible CHF RSV infection Possible multifocal pneumonia Elevated INR/possible history of A-fib Continue oxygen as needed Gentle IV diuresis. Monitor I's and O's Consult cardiology Dr. Mcgee Started ceftriaxone/azithromycin Resume home aspirin Monitor PTT/INR
--- NOTE | 2024-08-11 15:37 | PC.RT ---
Sputum sent to lab
[2024-08-11] MEDS: AZITHROMYCIN 250 MG TABLET 500 MG PO (15:57)
[2024-08-11] MEDS: ASPIRIN EC 81 MG TABEC PO (15:57)
[2024-08-11] MEDS: cefTRIAXone/D5w 1gm IV premix 50 ML IV (16:08)
[2024-08-11 16:28] LABS: Basophils % (Auto) 0 % (0-2.5); Eosinophils % (Auto) 0 % (0-10); Hematocrit 36.3 % (41.0-53.0); Hemoglobin 11.9 g/dL (13.5-16.0); Immature Granulocytes % (Auto) 1 % (0-0); Immature Granulocytes Auto 0.03 Thou/mm3 (0.00-0.00); Lymphocytes # (Auto) 1.5 Thou/mm3 (1.0-4.8); Lymphocytes % (Auto) 24 % (10-50); Mean Corpuscular HGB Conc 32.8 g/dl (31.0-37.0); Mean Corpuscular Hemoglobin 32.5 pg (25.0-35.0); Mean Corpuscular Volume 99 fL (80-100); Monocytes # (Auto) 0.5 Thou/mm3 (0.0-0.8); Monocytes % (Auto) 8 % (0-12); Neutrophils # (Auto) 4.1 Thou/mm3 (1.8-7.7); Neutrophils % (Auto) 67 % (37-80); Nucleated Red Blood Cell % 0 /100 WBC (0); Platelet Count 141 Thou/mm3 (140-440); RDW Standard Deviation 50.6 fL (35.1-43.9); Red Blood Count 3.66 Miln/mm3 (4.50-5.90); White Blood Count 6.1 Thou/mm3 (3.8-10.6)
--- NOTE | 2024-08-11 16:43 | PC.NURSE ---
Report called and given to Pratima CROSS.
[2024-08-11 16:50] LABS: Alanine Aminotransferase 53 U/L (10-49); Albumin, Serum 4.3 gm/dL (3.4-4.8); Albumin/Globulin Ratio 1.3 (1.2-2.2); Alkaline Phosphatase 116 U/L (46-116); Anion Gap 8 (7-16); Aspartate Amino Transferase 81 U/L (0-34); BUN/Creatinine Ratio 32 Ratio (12-20); Bilirubin,Total 1.5 mg/dL (0.3-1.2); Blood Urea Nitrogen 35 mg/dL (9-23); Calcium 8.8 mg/dL (8.3-10.6); Calcium (Corrected) 8.8 mg/dL (8.5-10.1); Carbon Dioxide 26.6 mMol/L (20.0-31.0); Chloride 101 mMol/L (98-107); Creatinine (Component) 1.1 mg/dL (0.6-1.3); Estimated Creatinine Clearance 58.7 mL/min (>60); Globulin 3.3 gm/dL (2.3-3.5); Glucose 125 mg/dL (74-106); Osmolality,Calculated 280 (275-295); Potassium 4.1 mMol/L (3.4-5.1); Sodium 136 mMol/L (136-145); Total Protein 7.6 gm/dL (5.7-8.2); eGFR > 60 See Note
[2024-08-11 16:56] LABS: Troponin I 0.251 ng/mL (0.0-0.045)
[2024-08-11] MEDS: guaiFENesin/P-EPHED TABLET 1 TAB PO (21:06)
[2024-08-11 22:01] LABS: Troponin I 0.262 ng/mL (0.0-0.045)
--- NOTE | 2024-08-11 22:04 | PC.NURSE ---
Addendum entered by Jerry De Paz RN 08/11/24 22:40: Dr. Simon made aware. Original Note: RN attempted to notify hospitalsts [phone] about critical troponin of 0.262, but hospitalists did not answer either extension. Will try to contact again later.
[2024-08-12] VITALS (14 sets, daily range): BP systolic 119–152; BP diastolic 75–88; PULSE 83–939; RESP 16–24; TEMP 36.2–38.1; O2SAT 92–97; BMI 27.8
[2024-08-12 03:17] LABS: Basophils % (Auto) 1 % (0-2.5); Eosinophils % (Auto) 0 % (0-10); Hematocrit 34.2 % (41.0-53.0); Hemoglobin 11.3 g/dL (13.5-16.0); Immature Granulocytes % (Auto) 0 % (0-0); Immature Granulocytes Auto 0.01 Thou/mm3 (0.00-0.00); Lymphocytes # (Auto) 1.3 Thou/mm3 (1.0-4.8); Lymphocytes % (Auto) 22 % (10-50); Mean Corpuscular Hemoglobin 32.9 pg (25.0-35.0); Mean Corpuscular Volume 100 fL (80-100); Monocytes # (Auto) 0.4 Thou/mm3 (0.0-0.8); Monocytes % (Auto) 7 % (0-12); Neutrophils # (Auto) 4.2 Thou/mm3 (1.8-7.7); Neutrophils % (Auto) 71 % (37-80); Nucleated Red Blood Cell % 0 /100 WBC (0); Platelet Count 146 Thou/mm3 (140-440); RDW Standard Deviation 50.5 fL (35.1-43.9); Red Blood Count 3.43 Miln/mm3 (4.50-5.90)
[2024-08-12 03:45] LABS: Anion Gap 7 (7-16); BUN/Creatinine Ratio 35 Ratio (12-20); Blood Urea Nitrogen 35 mg/dL (9-23); Carbon Dioxide 27.6 mMol/L (20.0-31.0); Chloride 102 mMol/L (98-107); Estimated Creatinine Clearance 64.5 mL/min (>60); Potassium 4.4 mMol/L (3.4-5.1); Sodium 137 mMol/L (136-145); eGFR > 60 See Note
[2024-08-12 03:46] LABS: Alanine Aminotransferase 68 U/L (10-49); Albumin, Serum 3.9 gm/dL (3.4-4.8); Albumin/Globulin Ratio 1.3 (1.2-2.2); Alkaline Phosphatase 102 U/L (46-116); Aspartate Amino Transferase 110 U/L (0-34); Bilirubin,Total 1.2 mg/dL (0.3-1.2); Calcium 8.4 mg/dL (8.3-10.6); Calcium (Corrected) 8.5 mg/dL (8.5-10.1); Globulin 3.1 gm/dL (2.3-3.5); Glucose 110 mg/dL (74-106); Osmolality,Calculated 282 (275-295); Thyroid Stimulating Hormone 0.57 uIU/mL (0.55-4.78)
[2024-08-12 03:56] LABS: Troponin I 0.206 ng/mL (0.0-0.045)
--- NOTE | 2024-08-12 03:57 | PC.NURSE ---
Dr. Sharma made aware of critical troponin of 0.206.
[2024-08-12 04:20] LABS: Glucose Estimated Average 154 mg/dL (80-131)
--- NOTE | 2024-08-12 08:16 | PC.NURSE ---
Per Izzy, changed daily lasix from 20mg to 40mg
[2024-08-12 08:51] LABS: INR 2.8 (0.9-1.3); Prothrombin Time 28.9 Seconds (9.0-12.2)
[2024-08-12] MEDS: TAMSULOSIN HCL 0.4 MG CAPSULE PO (09:25)
[2024-08-12] MEDS: SENNA TABLET 1 TAB PO (09:25)
[2024-08-12] MEDS: AZITHROMYCIN 250 MG TABLET PO (09:26)
[2024-08-12] MEDS: FUROSEMIDE INJ 10 MG/ML 4ML VIAL 40 MG IVP (09:26)
[2024-08-12] MEDS: ASPIRIN EC 81 MG TABEC PO (09:26)
[2024-08-12] MEDS: cefTRIAXone/D5w 1gm IV premix 50 ML IV (09:27)
[2024-08-12] MEDS: guaiFENesin/P-EPHED TABLET 1 TAB PO ×2 (09:41→20:24)
--- NOTE | 2024-08-12 10:38 | ESCONSULT_ITS ---
RE: ALIVIA BARROS : 1935 DATE OF CONSULTATION: 08/12/2024 REFERRING PHYSICIAN: Hospitalist. HISTORY OF PRESENT ILLNESS: Mr. Alivia Barros is an 89-year-old male who is known to have a history of chronic atrial fibrillation, chronic congestive heart failure, history of chronic hypertension, history of hyperlipidemia. The patient also has a history of diabetes mellitus. The patient has been having symptoms of cough and congestion for the last several months. Recently, the patient has been having progressively increasing symptoms of shortness of breath as well as cough, congestion, and expectoration. The patient denied any complaint of chest pain though, denied any complaint of skipped beats or palpitations. Because of the worsening symptoms, the patient was seen in the Emergency Room and was subsequently hospitalized. The patient was tested to be RSV positive and also was noted to have an elevated BNP level. Presently, the patient is not having any symptoms of fever or chills. PAST MEDICAL HISTORY: Significant for history of chronic hypertension for the last several years, history of chronic atrial fibrillation and the patient has been on chronic Coumadin therapy for the same, history of hyperlipidemia, history of diabetes mellitus for the last several years, history of congestive heart failure, being treated as an outpatient. PERSONAL HISTORY: The patient is a nonsmoker, nonalcoholic. FAMILY HISTORY: Noncontributory. PHYSICAL EXAMINATION: VITAL SIGNS: The patient's blood pressure is 147/77, pulse rate is 83 per minute and irregularly irregular. Respiratory rate is 20, temperature is 98.8, oxygen saturation on room air is 96%. HEAD AND NECK: Unremarkable. JVP is not elevated. Carotid pulses are palpable on both the sides. No carotid bruits heard. HEART: PMI neither palpable nor visible. S1 and S2 are normal. Heart rhythm is irregularly irregular. No murmur or gallop is appreciated. LUNGS: The lungs show a few bilateral basal rhonchi. ABDOMEN: Abdomen is soft. No organomegaly. EXTREMITIES: No pedal edema is noted. Peripheral pulses in the feet are palpable. NEUROLOGIC: Unremarkable. No focal localizing neuro deficit is appreciated. DIAGNOSTIC DATA: The patient's electrocardiogram showed atrial fibrillation with a moderate ventricular response. Right axial deviation is noted and Q-waves are noted in lead V1 and V2 suggestive of possible septal myocardial infarction of undetermined age. The lab work shows WBC count of 6,000, hemoglobin 11.3 with a hematocrit of 34.2. The patient's prothrombin time is 25.4 seconds with INR of 2.5. The patient's BUN yesterday was 35, creatinine 1.1, potassium level of 4.1, glucose of 125, troponin level was 0.25 and repeat troponin level was 0.262. The patient's third set of troponin level was 0.206. The patient's BNP level was reported to be 825. Today's BUN is 35, creatinine is 1.0, potassium level is 4.4. The patient's arterial blood gases done yesterday showed pH of 7.51, pCO2 of 29, pO2 of only 53, and O2 saturation of 92. The chest x-ray done on 08/10/2024 was reported to show mild CHF. The CT scan of the chest done yesterday showed bilateral pneumonia, most prominent on the left base. CLINICAL IMPRESSION: 1. Congestive heart failure. 2. Bilateral pneumonia. 3. Chronic atrial fibrillation. 4. Mild azotemia. 5. Diabetes mellitus. 6. Chronic hypertension. 7. Hyperlipidemia. 8. Mildly elevated troponin level possibly secondary to congestive heart failure, doubt acute myocardial infarction. SUGGESTIONS: I agree with the present plan of management of the patient of continuing the patient on intravenous diuretic therapy, continuing the patient on insulin therapy, continuing the patient on IV antibiotic therapy, continuing the patient on anticoagulant therapy. Cardiac echo Doppler study will be ordered. Follow-up BNP level will be checked. Follow-up renal panel will be checked. I will follow the patient with you and I highly thank you very much for letting me participate in the care of the patient. DT: 07:46:51 TT: 10:36:00 Ref: [id number] - TID: [id number]
--- NOTE | 2024-08-12 11:52 | ECHO_ITS ---
Transthoracic Echo Report Ht (in): 72 Wt (lb): 210 Exam Location: Echo Lab Status: Inpatient Customer Services Coordinator: Stacy Castillo Indications: Procedure Performed: BP: 148 / 84 HR: Technical Quality: Technically difficult study MEASUREMENTS (Male / Female) Normal Values 2D ECHO LV Diastolic Diameter PLAX 4.3 cm 4.2 - 5.9 / 3.9 - 5.3 cm LV Systolic Diameter PLAX 3.3 cm IVS Diastolic Thickness 1.2 cm 0.6 - 1.0 / 0.6 - 0.9 cm LVPW Diastolic Thickness 1.1 cm 0.6 - 1.0 / 0.6 - 0.9 cm LV Relative Wall Thickness 0.6 LVOT Diameter 2.0 cm LV Ejection Fraction MOD BP 38.3 % >= 55 % LV Ejection Fraction MOD 4C 42.9 % LV Ejection Fraction 4C AL 43.7 % LV Ejection Fraction MOD 2C 34.1 % LV Ejection Fraction 2C AL 33.5 % LA Volume Index 43.1 cm?/m? 16 - 28 cm?/m? DOPPLER AV Peak Velocity 164.0 cm/s AV Peak Gradient 10.8 mmHg AV Mean Gradient 6.0 mmHg AV Velocity Time Integral 28.8 cm LVOT Peak Velocity 69.5 cm/s LVOT Peak Gradient 1.9 mmHg LVOT Velocity Time Integral 12.3 cm AV Area Cont Eq vti 1.3 cm? AV Area Cont Eq pk 1.3 cm? MV Area PHT 5.4 cm? MR Peak Velocity 454.0 cm/s MR Peak Gradient 82.4 mmHg Mitral E Point Velocity 80.0 cm/s Mitral A Point Velocity 95.1 cm/s Mitral E to A Ratio 0.8 LV E' Lateral Velocity 7.1 cm/s Mitral E to LV E' Lateral Ratio 11.3 LV E' Septal Velocity 5.8 cm/s Mitral E to LV E' Septal Ratio 13.9 TR Peak Velocity 248.5 cm/s TR Peak Gradient 24.7 mmHg PV Peak Velocity 88.2 cm/s PV Peak Gradient 3.1 mmHg FINDINGS Left Ventricle Normal left ventricular size and systolic function with no obvious regional wall motion abnormalities. Mild LVH. Normal left ventricular diastolic filling pattern for age. The ejection fraction is visually estimated at 50- 55 %. Right Ventricle The right ventricular size is mildy increased. The right ventricular systolic function is mildly decreased. The estimated right ventricular systolic pressure, 34 mmHg. RAP 8. Left Atrium The left atrial cavity size is mildly increased. Right Atrium The right atrial cavity size is severely increased. Atrial Septum The interatrial septum appears normal with no evidence of a shunt. Aorta The aorta is normal by two-dimensional, color flow and Doppler interrogation. Mitral Valve The mitral valve is normal by two-dimensional, color flow and Doppler interrogation. Moderate mitral regurgitation. Aortic Valve The aortic valve is trileaflet and normal by two-dimensional, color flow and Doppler interrogation. There is no significant aortic valve regurgitation. Tricuspid Valve The tricuspid valve is normal by two-dimensional, color flow and Doppler interrogation. There is mild tricuspid valve regurgitation. Pulmonic Valve The pulmonic valve is not well visualized. There is no significant pulmonic valve regurgitation. Vessels The pulmonary artery appears normal. The inferior vena cava pulmonary and hepatic veins appear normal. Pericardium The pericardium is normal by two-dimensional imaging. There is no significant pericardial effusion. CONCLUSIONS Indication: CHF exacerbation Normal LV size. Mild LVH and normal LV function. Estimated EF 50-55%. Diastolic dysfunction present but cannot grade due to arrhthymia. Mildly dilated RV and RV systolic function normal. Estimated RVSP 40 mmHg. RAP 15. Severely dilated RA and mildly dilated LA Moderate MR and Moderate to severe TR. Moderate AV sclerosis without stenosis. LA carvity size is mildly increased. RA cavity size is severely increased. Chuy Reyes (Electronically Signed) Final Date: 12 August 2024 19:12
[2024-08-12] MEDS: ACETAMINOPHEN 325 MG TABLET 650 MG PO (12:06)
--- NOTE | 2024-08-12 14:38 | ESPR_ITS ---
Documentation for date of: 08/12/24 Subjective Subjective Interval history: Patient seen at bedside. No acute overnight events. He reports that he feels significantly better than he did in admission. Still has a cought but less bothersome. He is saturating 97% on 3L of O2 via nasal cannula. Evaluated by country printer apprentice Dr Mcgee this morning, recommends to continue current management and get echo done. Warfarin has not been started in the hospital, but INR today went up to 2.8 from 2.5. Followed up with cardiology for warfarin dosing, recommends to start at 3mg today with INR goal 2-3 Exam Vital Signs Temp Pulse Resp BP Pulse Ox O2 Del Method O2 Flow Rate 100.5 F H 96 18 134/86 H 97 Nasal Cannula 3 08/12/24 12:06 08/12/24 11:35 08/12/24 11:35 08/12/24 11:35 08/12/24 11:35 08/12/24 11:35 08/12/24 11:35 Narrative Exam GENERAL: AAOX3 NEURO: CORRECTIONAL FOOD SERVICE SUPERVISOR grossly intact, moves extremities x4 HEENT: Moist mucosa. Eyes open, symmetrical, & clear CARDIO: No chest pain on palpation. Normal rate, irregular, soft, diastolic murmur heard in the second intercostal space on the left PULM: Coughing, rhonchi heard, minimal crackles heard bilaterally, no wheeze. Nasal cannula in situ-2 L GI: Abdomen soft, nondistended, no pain on palpation. BSx4 URO/VENDING MACHINE REPAIRER:: No further abnormalities noted. SKIN/MSK/EXT: No wounds/rashes/edema/amputations, no pain on palpation. Pedal pulses present B/L Objective Labs 08/13/24 05:22 08/13/24 05:22 Labs: Laboratory Results - last 24 hr 08/11/24 08/11/24 08/12/24 16:10 21:26 03:08 WBC 6.1 6.0 RBC 3.66 L 3.43 L Hgb 11.9 L 11.3 L Hct 36.3 L 34.2 L MCV 99 100 MCH 32.5 32.9 MCHC 32.8 33.0 RDW Std Deviation 50.6 H 50.5 H Plt Count 141 146 Neut % (Auto) 67 71 Lymph % (Auto) 24 22 [place] % (Auto) 8 7 Eos % (Auto) 0 0 Baso % (Auto) 0 1 Neut # (Auto) 4.1 4.2 Lymph # (Auto) 1.5 1.3 [place] # (Auto) 0.5 0.4 Eos # (Auto) 0.0 0.0 Baso # (Auto) 0.0 0.0 Immature Gran # (Auto) 0.03 H 0.01 H Absolute Nucleated RBC 0.00 0.00 Immature Gran % 1 H 0 Nucleated RBC % 0 0 PT INR Sodium 136 137 Potassium 4.1 4.4 Chloride 101 102 Carbon Dioxide 26.6 27.6 Anion Gap 8 7 BUN 35 H 35 H Creatinine 1.1 1.0 Estim Creat Clear Calc 58.7 L 64.5 eGFR > 60 > 60 BUN/Creatinine Ratio 32 H 35 H Glucose [address] Glu mg/dL 154 H Hemoglobin A1c 7.0 H Calculated Osmolality 280 282 Calcium 8.8 8.4 Corrected Calcium 8.8 8.5 Phosphorus 3.0 Magnesium 2.0 Total Bilirubin 1.5 H D 1.2 AST 81 H 110 H ALT 53 H 68 H Alkaline Phosphatase 116 D 102 Troponin I 0.251 H* 0.262 H* 0.206 H* Total Protein 7.6 7.0 Albumin 4.3 3.9 Globulin 3.3 3.1 Albumin/Globulin Ratio 1.3 1.3 TSH 0.57 08/12/24 08:16 WBC RBC Hgb Hct MCV MCH MCHC RDW Std Deviation Plt Count Neut % (Auto) Lymph % (Auto) [place] % (Auto) Eos % (Auto) Baso % (Auto) Neut # (Auto) Lymph # (Auto) [place] # (Auto) Eos # (Auto) Baso # (Auto) Immature Gran # (Auto) Absolute Nucleated RBC Immature Gran % Nucleated RBC % PT 28.9 H D INR 2.8 H Sodium Potassium Chloride Carbon Dioxide Anion Gap BUN Creatinine Estim Creat Clear Calc eGFR BUN/Creatinine Ratio Glucose Estimated Ave Glu mg/dL Hemoglobin A1c Calculated Osmolality Calcium Corrected Calcium Phosphorus Magnesium Total Bilirubin AST ALT Alkaline Phosphatase Troponin I Total Protein Albumin Globulin Albumin/Globulin Ratio TSH ABG Interpretation ABG results: 08/11/24 11:44 VBG pH 7.51 VBG pCO2 29 L VBG pO2 53 VBG Base Excess 1 Quality Measures Quality Measures none Advance care planning discussed with:: patient Assessment & Plan Assessment Current Active Medications: Generic Name Dose Route Start Last Admin Trade Name Vetoq PRN Reason Stop Dose Admin Acetaminophen 650 mg 08/12/24 13:52 Acetaminophen 325 Mg Tablet PO 09/10/24 15:09 Q6H PRN Pain 1-3 or Fever >100.1 Albuterol/Ipratropium 3 ml 08/11/24 15:48 Albuterol/Ipratropium (Duoneb) Rt Daisy 3 Ml Nebu INH 09/10/24 18:59 Q4HRRT PRN WHEEZING Aspirin 81 mg 08/11/24 15:30 08/12/24 09:26 Aspirin Ec 81 Mg Tabec PO 09/10/24 15:29 81 mg QDAY RONEL Administration Azithromycin 250 mg 08/12/24 09:00 08/12/24 09:26 Azithromycin 250 Mg Tablet PO 08/16/24 08:59 250 mg QDAY RONEL Administration Dextrose 25 ml 08/11/24 15:47 Dextrose 50%-Water Inj 50 Ml Syringe IV 09/10/24 15:46 Q15MIN PRN BG 50-70 responsive npo pt Dextrose 50 ml 08/11/24 15:47 Dextrose 50%-Water Inj 50 Ml Syringe IV 09/10/24 15:46 Q15MIN PRN BG <50 OR BG <70 & pt unresponsive Furosemide 40 mg 08/12/24 09:00 08/12/24 09:26 Furosemide Inj 10 Mg/Ml 4ml Vial IVP 09/11/24 08:59 40 mg QDAY RONEL Administration Glucagon 1 mg 08/11/24 15:47 Glucagon Inj 1 Mg Vial IM Q15MIN PRN BG <70, and no IV access Guaifenesin 1 tab 08/11/24 21:00 08/11/24 21:06 Guaifenesin/P-Ephed Tablet PO 09/10/24 20:59 1 tab BID RONEL Administration Ceftriaxone Sodium/Dextrose 50 mls @ 100 mls/hr 08/11/24 15:20 08/12/24 09:27 Rocephin/D5w 1gm Iv Premix IV 08/18/24 15:19 100 mls/hr QDAY RONEL Administration Insulin Human Lispro 0 unit 08/11/24 17:00 08/12/24 08:17 Insulin Lispro (Admelog) 1 Unit/0.01 Ml Unit SC 09/10/24 16:59 Not Given AC RONEL Protocol Ondansetron HCl 4 mg 08/11/24 15:10 Ondansetron Inj 2 Mg/Ml Inj 2 Ml IV 09/10/24 15:09 Q6H PRN NAUSEA OR VOMITING Protocol Promethazine HCl/Dextromethorphan 5 ml 08/11/24 15:20 Promethazine/Dm Syrup 5 Ml Dose PO 09/10/24 15:19 Q6HR PRN COUGH Protocol Sennosides 1 tab 08/12/24 09:00 08/12/24 09:25 Senna Tablet PO 09/11/24 08:59 1 tab QDAY RONEL Administration Protocol Tamsulosin HCl 0.4 mg 08/12/24 09:00 08/12/24 09:25 Tamsulosin Hcl 0.4 Mg Capsule PO 09/11/24 08:59 0.4 mg QDAY RONEL Administration Warfarin Sodium 3 mg 08/12/24 14:45 Warfarin 1 Mg Tablet PO 08/26/24 14:44 QDAY RONEL Plan Summary: The patient is an 89-year-old male with a past medical history of hypertension, hyperlipidemia, type II DM, ?valvular heart disease, pulmonary nodules, BPH, A-fib on warfarin who presented to the ED on 08/11/2024 with complaints of shortness of breath and cough that have been going on for about a week. #Acute hypoxic respiratory failure #RSV pneumonia versus bacterial #CHF exacerbation The patient presented with a 1 week history of shortness of breath and nonproductive cough. He does mention that he has had a chronic cough for about 6 months which has gotten worse over the last week with associated shortness of breath that has made it difficult for him to do both his activities of daily living others. He initially presented yesterday but left AMA. COVID and influenza negative but RSV positive. BNP elevated at 825. Chest CT shows moderate vascular congestion with soft areas of pneumonia prominent in left base and mediastinal lymphadenopathy. Patient does not know about a history of heart failure but since having prescribed Lasix in the past. He is being followed by country printer apprentice Dr. Mcgee. No previous echocardiogram on file. 08/12/2024- Not as much difficulty in breathing but oxygen requirements went up, he is currently on 3L of O2 via nasal cannula. Plan: -Admit to telemetry obs -IV ceftriaxone and azithromycin -IV Lasix 20 mg daily -Blood and sputum culture -Echocardiogram -Cardiology consulted, appreciate recommendations #Elevated troponin levels On presentation to the ED yesterday, labs showed elevated troponin of 0.08. Patient denies any chest pain. Plan: -Continue to trend troponins -Aspirin 81 mg daily #History of A-fib #History of ?valvular heart disease #Therapeutic INR The patient does mention that he has had a history of A-fib and while he is unsure thinks this is why he is on warfarin. He checks his INR monthly but does not remember what the last value was. EKG this admission shows atrial fibrillation, rate controlled. INR-2.5 CHADVASC- 11/06 HASBLED- 2/3 08/12/2024- INR today- 2.8. Cardiology consulted on warfarin dosing. Recommends to start at 3mg today with an INR goal of 2-3 Plan: -Warfarin 3mg -Cardiology consulted, appreciate recommendations -Continue to monitor #History of hypertension Patient has a history of hypertension is on lisinopril 20 mg daily. Blood pressure on admission-149/90. BUN from yesterday's labs 26. Will consider adding lisinopril once the labs are outside or alternative antihypertensive. Plan: -Continue to monitor blood pressure -P.o. hydralazine 10 mg for SBP greater than 160 #History of type II DM Patient has a history of type II DM and is on leukocyte 5 mg twice daily last A1c done about 4 months ago-6.9 Plan: -ISS -A1c -Blood glucose check AC -Hypoglycemic protocols in place #Likely history of liver cirrhosis The patient denies any history of alcohol. Abdominal CT from September 2023 showed cirrhosis with mild ascites. On labs, patient has elevated transaminases, hyperbilirubinemia and elevated ALP. Coagulation profile shows elevated PT and APTT. Plan: -Continue monitoring CMP #History of BPH Patient has a history of BPH confirmed by abdominal CT done which showed prostatomegaly. He is on tamsulosin 0.4 mg twice daily.. Plan: -Resume home meds Health maintenance: Dispo:Tele Obs Diet: Carb consistent/cardiac DVT: Warfarin (confirm dose) Lopez: None Lines: Peripheral Med Rec: Pending, f/u Code: Full Attending Provider Attestation/Addendum I reviewed labs, imaging, EKG, home medications and prior available records. Face to face evaluation was performed by me. I have personally examined the patient and discussed assessment and plan with the IM team. I reviewed the resident note and agree with the plan with exceptions as below. Acute hypoxic respiratory failure Non-STEMI Possible CHF RSV infection Possible multifocal pneumonia Elevated INR/possible history of A-fib Continue oxygen as needed Troponin peaked Gentle IV diuresis. Monitor I's and O's Consult cardiology Dr. Mcgee: Recommended echocardiogram. Started ceftriaxone/azithromycin Resume home aspirin Resumed warfarin Monitor PT/INR
[2024-08-12] MEDS: WARFARIN 1 MG TABLET 3 MG PO (14:45)
[2024-08-12 23:37] LABS: Amphetamine/Methamp Scrn,U Negative (Negative); Barbiturate Screen,Urine Negative (Negative); Benzodiazepines Screen,Urine Negative (Negative); Benzoylecgonine Screen, Ur Negative (Negative); Fentanyl Screen,Urine Negative (Negative); Opiate Screen,Urine Negative (Negative); THC Screen,Urine Negative (Negative)
[2024-08-13] VITALS (12 sets, daily range): BP systolic 110–142; BP diastolic 66–91; PULSE 69–95; RESP 14–23; TEMP 36.4–37.5; O2SAT 94–99; BMI 27.8
[2024-08-13 05:40] LABS: Basophils % (Auto) 1 % (0-2.5); Eosinophils % (Auto) 1 % (0-10); Hematocrit 32.7 % (41.0-53.0); Hemoglobin 10.8 g/dL (13.5-16.0); Immature Granulocytes % (Auto) 1 % (0-0); Immature Granulocytes Auto 0.02 Thou/mm3 (0.00-0.00); Lymphocytes # (Auto) 1.3 Thou/mm3 (1.0-4.8); Lymphocytes % (Auto) 30 % (10-50); Mean Corpuscular Hemoglobin 32.6 pg (25.0-35.0); Mean Corpuscular Volume 99 fL (80-100); Monocytes # (Auto) 0.3 Thou/mm3 (0.0-0.8); Monocytes % (Auto) 6 % (0-12); Neutrophils # (Auto) 2.6 Thou/mm3 (1.8-7.7); Neutrophils % (Auto) 62 % (37-80); Nucleated Red Blood Cell % 0 /100 WBC (0); Platelet Count 126 Thou/mm3 (140-440); RDW Standard Deviation 48.1 fL (35.1-43.9); Red Blood Count 3.31 Miln/mm3 (4.50-5.90); White Blood Count 4.2 Thou/mm3 (3.8-10.6)
[2024-08-13 05:55] LABS: INR 2.8 (0.9-1.3); Prothrombin Time 28.8 Seconds (9.0-12.2)
[2024-08-13 07:15] LABS: Alanine Aminotransferase 69 U/L (10-49); Albumin, Serum 3.6 gm/dL (3.4-4.8); Albumin/Globulin Ratio 1.2 (1.2-2.2); Alkaline Phosphatase 100 U/L (46-116); Anion Gap 6 (7-16); Aspartate Amino Transferase 91 U/L (0-34); BUN/Creatinine Ratio 46 Ratio (12-20); Bilirubin,Total 0.9 mg/dL (0.3-1.2); Blood Urea Nitrogen 37 mg/dL (9-23); Calcium 8.3 mg/dL (8.3-10.6); Calcium (Corrected) 8.6 mg/dL (8.5-10.1); Carbon Dioxide 30.3 mMol/L (20.0-31.0); Chloride 102 mMol/L (98-107); Creatinine (Component) 0.8 mg/dL (0.6-1.3); Globulin 2.9 gm/dL (2.3-3.5); Glucose 100 mg/dL (74-106); Magnesium 2.1 mg/dL (1.6-2.6); Osmolality,Calculated 284 (275-295); Phosphorous 2.5 mg/dL (2.4-5.1); Potassium 3.7 mMol/L (3.4-5.1); Sodium 138 mMol/L (136-145); Total Protein 6.5 gm/dL (5.7-8.2); eGFR > 60 See Note
[2024-08-13 08:07] LABS: B-Type Natriuretic Peptide 278 pg/mL (0-100)
[2024-08-13] MEDS: FUROSEMIDE INJ 10 MG/ML 4ML VIAL 40 MG IVP (09:30)
[2024-08-13] MEDS: cefTRIAXone/D5w 1gm IV premix 50 ML IV (09:39)
[2024-08-13] MEDS: TAMSULOSIN HCL 0.4 MG CAPSULE PO (09:39)
[2024-08-13] MEDS: AZITHROMYCIN 250 MG TABLET PO (09:39)
[2024-08-13] MEDS: guaiFENesin/P-EPHED TABLET 1 TAB PO ×2 (09:39→20:19)
[2024-08-13] MEDS: ASPIRIN EC 81 MG TABEC PO (09:39)
[2024-08-13] MEDS: SENNA TABLET 1 TAB PO (09:39)
[2024-08-13] MEDS: ALBUTEROL/IPRATROPIUM (Duoneb) RT SOL 3 ML NEBU INH (10:53)
--- NOTE | 2024-08-13 11:41 | PC.SS ---
Patient Bakari Barros is a 89 Year old male admitted for Acute Hypoxic Respiratory Failure. SS met with patient at bedside to discuss discharge plan and review demographic information. Patient appeared to be alert and oriented. Patient reports he lives at home with his life partner, Odalis Corral who he reports is his surrogate decision maker, [phone]. Patient reports that prior to admission he did not utilize any source of DME to assist with ambulation. Patient is able to complete all ADL's independently, patient's PCP is Chris Osei. Pharmacy of choice is [email or web address]. At time of discharge patient will return home, Odalis will provide transportation. Next of Kin: life partner, Odalis Calhoun Discharge Plan: Home
[2024-08-13] MEDS: WARFARIN 1 MG TABLET 3 MG PO (12:59)
--- NOTE | 2024-08-13 14:53 | PD.RESDS ---
Planned Discharge Date 08/13/24 DS: Providers Provider Date of admission: 08/13/24 07:36 Primary care physician: Chris Osei MD Admitting Provider: Brian Hernandez MD Attending Provider on Admission: Alan Strong MD Consults: 08/11/24 15:39 Consult to Cardiology Routine Comment: Consulting Provider: Minor Mcgee Attending Provider on DC: Domo Wilson MD Discharging Provider: Domo Wilson MD DS: Diagnosis Problem List Completed Was Problem List Reviewed/Reconciled?: Yes Hospital Course Hospital Course Hospital course: The patient is an 89 years old male with a past medical history of hypertension, hyperlipidemia, type II DM, ?valvular heart disease, pulmonary nodules, BPH, chronic atrial fibrillation on warfarin presented to the ED on 08/11/2024 complaints of shortness of breath and cough that had been going on for about a week. The patient was in his usual state of health until about a week ago when he noticed that he had a cough which progressively got worse and with associated shortness of breath and cough became productive with abundant sputum. 6 months ago he was started on doxycycline by his PCP due to chronic cough. In the ED, the patient was afebrile with some elevation in the blood pressure in the 140s. Labs from the day before showed WBC 4.6 Hgb 12.3 PLT 162 sodium 137 potassium 4.3 chloride 103 bicarb 25 BUN 26 creatinine 1.1 glucose 152 T. bili 2 AST 46 ALT 39 ALP 136 LDH 299 troponin 0.082 BNP 714, today 825 and negative Pro-Rafael. Coagulation profile showed a PT of 25.4 INR 2.5 APTT 39.3. An EKG was done which showed atrial fibrillation. COVID and influenza were negative but RSV was positive. Chest CT was also done which shows some pneumonia and mediastinal lymphadenopathy. The patient continued to be hypoxic and was placed on 2 L of oxygen, given 1 dose of IV Lasix and has been admitted for observation acute hypoxic respiratory failure with viral pneumonia and possible CHF exacerbation and was started on ceftriaxone and azithromycin IV. His condition significantly improved. He is stable for discharge today with home oxygen. Continue home medications as prescribed. Take amoxicillin 1g 3 times a day for 5 days. Take azithromycin 250 mg daily for 3 days. Continue home medications as prescribed. Follow up with PCP and cardiology within 2 weeks. Continue checking INR as instructed by cardiology. #Acute hypoxic respiratory failure. #RSV pneumonia vs bacterial (superimposed?). #CHF exacerbation. #Elevated troponin levels. #History of chronic A-fib. #History of ?valvular heart disease. #Therapeutic INR. #History of hypertension. #History of type II DM. #Likely history of liver cirrhosis. #History of BPH. Plan of care discussed with attending Dr. Hernandez. Domo Wilson MD, PGY 2. Disclaimer: This note was dictated by speech recognition. Minor errors in seamark advanced operator maintainer may be present due to voice recognition software. Time Spent with Patient Time attestation: Total time spent providing and/or coordinating discharge services: 40 min Exam Vital Signs Temp Pulse Resp BP Pulse Ox O2 Del Method O2 Flow Rate 97.9 F 71 18 132/73 H 96 Room Air 2 08/13/24 12:00 08/13/24 12:00 08/13/24 12:00 08/13/24 12:00 08/13/24 12:00 08/13/24 12:08/13/24 10:56 Narrative Exam Gen: Well-developed and well-nourished elderly male. HEENT: NCAT, PERRLA, EOMI, MMM, anicteric conjunctivae. CVS: normal S1 and S2. Irregularly irregular. Faint diastolic murmur over mitral area. Resp: rhonchi B/L. No rales, crackles or wheezing. Abd: soft, non-tender, non-distended. BS+ in all 4 quadrants. MSK: Good ROM in BUE & BLE. No edema or rash. Neuro: CN II-XII grossly intact. Strength 5/5 in BUE & BLE. Alert and oriented x3. Psych: appropriate mood and affect. Discharge Plan Plan Patient Disposition: HOME (Self Care) Disposition Comment: Stable Care Plan Goals: Continue home medications as prescribed. Take amoxicillin 1g 3 times a day for 5 days. Take azithromycin 250 mg daily for 3 days. Continue home medications as prescribed. Follow up with PCP and cardiology within 2 weeks. Continue checking INR as instructed by cardiology. Use home oxygen daily. Prescriptions/Referrals Prescriptions/Med Rec: New amoxicillin 500 mg tablet 1,000 mg PO TID 5 Days Qty: 30 0RF azithromycin 250 mg tablet 250 mg PO QDAY 3 Days Qty: 3 0RF Continued furosemide 40 mg tablet 40 mg PO DAILY Patient Comments: TAKE 1 TABLET BY MOUTH ONCE DAILY ferrous sulfate [FeroSul] 325 mg (65 mg iron) tablet 325 mg PO DAILY Patient Comments: TAKE 1 TABLET BY MOUTH ONCE DAILY potassium chloride 20 mEq tablet extended release 20 meq PO DAILY Patient Comments: TAKE 1 TABLET BY MOUTH ONCE DAILY tamsulosin 0.4 mg capsule 0.4 mg PO DAILY Patient Comments: TAKE 1 CAPSULE BY MOUTH TWICE DAILY warfarin 2.5 mg tablet 4 mg PO DAILY Patient Comments: TAKE 1 TABLET BY MOUTH ONCE DAILY docusate sodium 100 mg capsule 100 mg PO BID PRN (Reason: Constipation) Patient Comments: TAKE 1 CAPSULE BY MOUTH TWICE DAILY NEEDED FOR 30 DAYS omeprazole 20 mg capsule,delayed release(DR/EC) 20 mg PO DAILY Patient Comments: TAKE 1 CAPSULE BY MOUTH ONCE DAILY 30 MINUTES BEFORE MORNING MEAL glipizide 5 mg tablet 5 mg PO BID Patient Comments: TAKE 1 TABLET BY MOUTH TWICE DAILY 30 MINUTES BEFORE A MEAL Senokot Extra Strength 17.2 mg Tablet 17.2 mg PO BID lisinopril 10 mg tablet 10 mg PO DAILY Referrals: Chris Osei MD [Primary Care Provider] - Patient/Caregiver Discharge Instructions Print Language: Sinhala Stand Alone Forms: Nat[employer] Award Info., Patient Portal Info Letter Quality Discharge Quality Measures VTE prophylaxis
--- NOTE | 2024-08-13 14:56 | PC.SS ---
Addendum entered by Radha Sprague 08/13/24 16:02: SS was contacted by patient's nurse Serena and she informed SS that patient did not need 02. She reported she tested the patient at rest and walked the patient and patient's 02 was 94-95%. SS will notify Dr. Roque. Original Note: OXYGEN Pt is discharged in a chronic stable state and has been treated optimally and has other respiratory needs. Oxygen has been ordered due to Covid and acute hypoxic respiratory failure. To secure a safe discharge for the pt home oxygen is needed. The pt is mobile within the home and will need continuous, portable O2 via nasal cannula. Pt is discharged in a chronic stable state and has been treated optimally and has other respiratory needs.? Oxygen has been ordered due to Covid and acute hypoxic respiratory failure.
--- NOTE | 2024-08-13 15:31 | PD.RESPRO ---
Documentation for date of: 08/13/24 Subjective Subjective Interval history: Patient was seen and examined at bedside. No acute overnight events. He saturates 98% on 1 L NC. Patient was planned for discharge however his states that she is unable to take care of him today due to RSV illness, she asked to postpone discharge for tomorrow once more family members can assist her. Patient will stay overnight today and will be discharged tomorrow in the morning. Exam Vital Signs Temp Pulse Resp BP Pulse Ox O2 Del Method O2 Flow Rate 97.9 F 71 18 132/73 H 96 Room Air 2 08/13/24 12:00 08/13/24 12:00 08/13/24 12:00 08/13/24 12:00 08/13/24 12:00 08/13/24 12:08/13/24 10:56 Narrative Exam Gen: Well-developed and well-nourished. HEENT: NCAT, PERRLA, EOMI, MMM, anicteric conjunctivae, poor dentition. CVS: normal S1 and S2. Irregularly irregular. No M/R/G. Resp: Rhonchi B/L. No rales, crackles or wheezing. Abd: soft, non-tender, non-distended. BS+ in all 4 quadrants. MSK: Good ROM in BUE & BLE. No edema or rash. Neuro: CN II-XII grossly intact. Strength 5/5 in BUE & BLE. Alert and oriented x3. Psych: appropriate mood and affect. Objective Labs 08/14/24 05:01 08/14/24 05:01 Labs: Laboratory Results - last 24 hr 08/12/24 08/13/24 23:00 05:22 WBC 4.2 RBC 3.31 L Hgb 10.8 L Hct 32.7 L MCV 99 MCH 32.6 MCHC 33.0 RDW Std Deviation 48.1 H Plt Count 126 L Neut % (Auto) 62 Lymph % (Auto) 30 [place] % (Auto) 6 Eos % (Auto) 1 Baso % (Auto) 1 Neut # (Auto) 2.6 Lymph # (Auto) 1.3 [place] # (Auto) 0.3 Eos # (Auto) 0.0 Baso # (Auto) 0.0 Immature Gran # (Auto) 0.02 H Absolute Nucleated RBC 0.00 Immature Gran % 1 H Nucleated RBC % 0 PT 28.8 H INR 2.8 H Sodium 138 Potassium 3.7 D Chloride 102 Carbon Dioxide 30.3 Anion Gap 6 L BUN 37 H Creatinine 0.8 Estim Creat Clear Calc 78.0 eGFR > 60 BUN/Creatinine Ratio 46 H Glucose 100 Calculated Osmolality 284 Calcium 8.3 Corrected Calcium 8.6 Phosphorus 2.5 Magnesium 2.1 Total Bilirubin 0.9 AST 91 H ALT 69 H Alkaline Phosphatase 100 B-Natriuretic Peptide 278 H Total Protein 6.5 Albumin 3.6 Globulin 2.9 Albumin/Globulin Ratio 1.2 Urine Opiates Screen Negative Urine Fentanyl Screen Negative Ur Barbiturates Screen Negative U Amphetamin/Meth Scrn Negative U Benzodiazepines Scrn Negative U Cocaine Metab Screen Negative U Marijuana (THC) Screen Negative ABG Interpretation ABG results: 08/11/24 11:44 VBG pH 7.51 VBG pCO2 29 L VBG pO2 53 VBG Base Excess 1 Quality Measures Quality Measures none Advance care planning discussed with:: patient and significant other Assessment & Plan Assessment Current Active Medications: Generic Name Dose Route Start Last Admin Trade Name Freq PRN Reason Stop Dose Admin Acetaminophen 650 mg 08/12/24 13:52 Acetaminophen 325 Mg Tablet PO 09/10/24 15:09 Q6H PRN Pain 1-3 or Fever >100.1 Albuterol/Ipratropium 3 ml 08/13/24 10:33 08/13/24 10:53 Albuterol/Ipratropium (Duoneb) Rt Daisy 3 Ml Nebu INH 09/12/24 10:59 3 ml Q4HRRT PRN Administration wheezing Aspirin 81 mg 08/11/24 15:30 08/13/24 09:39 Aspirin Ec 81 Mg Tabec PO 09/10/24 15:29 81 mg QDAY RONEL Administration Azithromycin 250 mg 08/12/24 09:00 08/13/24 09:39 Azithromycin 250 Mg Tablet PO 08/16/24 08:59 250 mg QDAY RONEL Administration Dextrose 25 ml 08/11/24 15:47 Dextrose 50%-Water Inj 50 Ml Syringe IV 09/10/24 15:46 Q15MIN PRN BG 50-70 responsive npo pt Dextrose 50 ml 08/11/24 15:47 Dextrose 50%-Water Inj 50 Ml Syringe IV 09/10/24 15:46 Q15MIN PRN BG <50 OR BG <70 & pt unresponsive Furosemide 40 mg 08/12/24 09:00 08/13/24 09:30 Furosemide Inj 10 Mg/Ml 4ml Vial IVP 09/11/24 08:59 40 mg QDAY RONEL Administration Glucagon 1 mg 08/11/24 15:47 Glucagon Inj 1 Mg Vial IM Q15MIN PRN BG <70, and no IV access Guaifenesin 1 tab 08/11/24 21:00 08/13/24 09:39 Guaifenesin/P-Ephed Tablet PO 09/10/24 20:59 1 tab BID RONEL Administration Ceftriaxone Sodium 1,000 mg/ 50 mls @ 100 mls/hr 08/14/24 09:00 Sodium Chloride IV 08/18/24 15:19 QDAY RONEL Insulin Human Lispro 0 unit 08/11/24 17:00 08/13/24 11:52 Insulin Lispro (Admelog) 1 Unit/0.01 Ml Unit SC 09/10/24 16:59 Not Given AC RONEL Protocol Ondansetron HCl 4 mg 08/11/24 15:10 Ondansetron Inj 2 Mg/Ml Inj 2 Ml IV 09/10/24 15:09 Q6H PRN NAUSEA OR VOMITING Protocol Promethazine HCl/Dextromethorphan 5 ml 08/11/24 15:20 Promethazine/Dm Syrup 5 Ml Dose PO 09/10/24 15:19 Q6HR PRN COUGH Protocol Sennosides 1 tab 08/12/24 09:00 08/13/24 09:39 Senna Tablet PO 09/11/24 08:59 1 tab QDAY RONEL Administration Protocol Tamsulosin HCl 0.4 mg 08/12/24 09:00 08/13/24 09:39 Tamsulosin Hcl 0.4 Mg Capsule PO 09/11/24 08:59 0.4 mg QDAY RONEL Administration Warfarin Sodium 3 mg 08/12/24 14:45 08/13/24 12:59 Warfarin 1 Mg Tablet PO 08/26/24 14:44 3 mg DAILY@1200 [facility] Administration Plan The patient is an 89-year-old male with a past medical history of hypertension, hyperlipidemia, type II DM, ?valvular heart disease, pulmonary nodules, BPH, A-fib on warfarin who presented to the ED on 08/11/2024 with complaints of shortness of breath and cough that have been going on for about a week. #Acute hypoxic respiratory failure. #RSV pneumonia versus bacterial. #CHF exacerbation. The patient presented with a 1 week history of shortness of breath and nonproductive cough. He does mention that he has had a chronic cough for about 6 months which has gotten worse over the last week with associated shortness of breath that has made it difficult for him to do both his activities of daily living others. He initially presented yesterday but left AMA. COVID and influenza negative but RSV positive. BNP elevated at 825. Chest CT shows moderate vascular congestion with soft areas of pneumonia prominent in left base and mediastinal lymphadenopathy. Patient does not know about a history of heart failure but since having prescribed Lasix in the past. He is being followed by car park attendant Dr. Mcgee. No previous echocardiogram on file. 08/12/2024- Not as much difficulty in breathing but oxygen requirements went up, he is currently on 3L of O2 via nasal cannula. Plan: -IV ceftriaxone and azithromycin -IV Lasix 20 mg daily -Blood and sputum culture -Cardiology consulted, appreciate recommendations #Elevated troponin levels. On presentation to the ED yesterday, labs showed elevated troponin of 0.08. Patient denies any chest pain. Plan: -Continue to trend troponins -Aspirin 81 mg daily #History of chronic A-fib. #History of ?valvular heart disease. #Therapeutic INR. The patient does mention that he has had a history of A-fib and while he is unsure thinks this is why he is on warfarin. He checks his INR monthly but does not remember what the last value was. EKG this admission shows atrial fibrillation, rate controlled. INR-2.5. Cardiology confirmed he is on warfarin due to chronic A-fib. CHADVASC- 5/6 HASBLED- 2/3 08/12/2024- INR today- 2.8. Cardiology consulted on warfarin dosing. Recommends to start at 3mg today with an INR goal of 2-3. Plan: -Warfarin 3mg -Cardiology consulted, appreciate recommendations -Continue to monitor #History of hypertension. Patient has a history of hypertension is on lisinopril 20 mg daily. Blood pressure on admission-149/90. BUN from yesterday's labs 26. Will consider adding lisinopril once the labs are outside or alternative antihypertensive. Plan: -Continue to monitor blood pressure -P.o. hydralazine 10 mg for SBP greater than 160 #History of type II DM. Patient has a history of type II DM and is on leukocyte 5 mg twice daily last A1c done about 4 months ago-6.9 Plan: -ISS -A1c -Blood glucose check AC -Hypoglycemic protocols in place #Likely history of liver cirrhosis. The patient denies any history of alcohol. Abdominal CT from September 2023 showed cirrhosis with mild ascites. On labs, patient has elevated transaminases, hyperbilirubinemia and elevated ALP. Coagulation profile shows elevated PT and APTT. Plan: -Continue monitoring CMP #History of BPH. Patient has a history of BPH confirmed by abdominal CT done which showed prostatomegaly. He is on tamsulosin 0.4 mg twice daily.. Plan: -Resume home meds Health maintenance: Dispo:Tele Obs Diet: Carb consistent/cardiac DVT: Warfarin (confirm dose) Lopez: None Lines: Peripheral Med Rec: Pending, f/u Code: Full code. Plan of care discussed with attending Dr. Hernandez. Domo Wilson MD, PGY 2. Disclaimer: This note was dictated by speech recognition. Minor errors in systems software specialist may be present due to voice recognition software. Attending Provider Attestation/Addendum I reviewed labs, imaging, EKG, home medications and prior available records. Face to face evaluation was performed by me. I have personally examined the patient and discussed assessment and plan with the IM team. I reviewed the resident note and agree with the plan with exceptions as below. Acute hypoxic respiratory failure Non-STEMI Possible CHF RSV infection Possible multifocal pneumonia Elevated INR/possible history of A-fib Pulmonary nodules Continue oxygen as needed Troponin peaked P.o. Lasix 40 mg daily upon discharge Consult cardiology Dr. Mcgee: Recommended echocardiogram. Echo showed EF of 50 to 55% with elevated RSVP Started ceftriaxone/azithromycin Resume home aspirin Resumed warfarin Monitor PT/INR Outpatient monitor of the pulmonary nodules with CT scan. Follow-up with PCP Discharge was deferred till 08/14 as the patient's is sick and unable to take care of him on 08/13
[2024-08-14] VITALS (13 sets, daily range): BP systolic 112–140; BP diastolic 66–80; PULSE 73–87; RESP 14–96; TEMP 36.3–37.2; O2SAT 92–96
[2024-08-14 05:26] LABS: Basophils % (Auto) 1 % (0-2.5); Eosinophils # (Auto) 0.1 Thou/mm3 (0.0-0.5); Eosinophils % (Auto) 3 % (0-10); Hematocrit 32.7 % (41.0-53.0); Hemoglobin 10.8 g/dL (13.5-16.0); Immature Granulocytes % (Auto) 1 % (0-0); Immature Granulocytes Auto 0.02 Thou/mm3 (0.00-0.00); Lymphocytes # (Auto) 1.8 Thou/mm3 (1.0-4.8); Lymphocytes % (Auto) 43 % (10-50); Mean Corpuscular Hemoglobin 32.3 pg (25.0-35.0); Mean Corpuscular Volume 98 fL (80-100); Monocytes # (Auto) 0.3 Thou/mm3 (0.0-0.8); Monocytes % (Auto) 8 % (0-12); Neutrophils # (Auto) 1.9 Thou/mm3 (1.8-7.7); Neutrophils % (Auto) 45 % (37-80); Nucleated Red Blood Cell % 0 /100 WBC (0); Platelet Count 132 Thou/mm3 (140-440); RDW Standard Deviation 48.2 fL (35.1-43.9); Red Blood Count 3.34 Miln/mm3 (4.50-5.90); White Blood Count 4.2 Thou/mm3 (3.8-10.6)
[2024-08-14 05:42] LABS: INR 2.6 (0.9-1.3); Prothrombin Time 26.5 Seconds (9.0-12.2)
[2024-08-14 06:32] LABS: Alanine Aminotransferase 58 U/L (10-49); Albumin, Serum 3.6 gm/dL (3.4-4.8); Albumin/Globulin Ratio 1.3 (1.2-2.2); Alkaline Phosphatase 102 U/L (46-116); Anion Gap 6 (7-16); Aspartate Amino Transferase 67 U/L (0-34); BUN/Creatinine Ratio 36 Ratio (12-20); Bilirubin,Total 0.8 mg/dL (0.3-1.2); Blood Urea Nitrogen 32 mg/dL (9-23); Calcium 8.7 mg/dL (8.3-10.6); Carbon Dioxide 30.7 mMol/L (20.0-31.0); Chloride 102 mMol/L (98-107); Creatinine (Component) 0.9 mg/dL (0.6-1.3); Estimated Creatinine Clearance 69.2 mL/min (>60); Globulin 2.8 gm/dL (2.3-3.5); Glucose 117 mg/dL (74-106); Osmolality,Calculated 285 (275-295); Phosphorous 2.6 mg/dL (2.4-5.1); Potassium 3.9 mMol/L (3.4-5.1); Sodium 139 mMol/L (136-145); Total Protein 6.4 gm/dL (5.7-8.2); eGFR > 60 See Note
[2024-08-14] MEDS: cefTRIAXone 1,000 MG in SODIUM CHLORIDE 0.9% (P) 50 ML 100 MG IV (08:38)
[2024-08-14] MEDS: FUROSEMIDE INJ 10 MG/ML 4ML VIAL 40 MG IVP (08:38)
[2024-08-14] MEDS: TAMSULOSIN HCL 0.4 MG CAPSULE PO (08:38)
[2024-08-14] MEDS: SENNA TABLET 1 TAB PO (08:38)
[2024-08-14] MEDS: AZITHROMYCIN 250 MG TABLET PO (08:38)
[2024-08-14] MEDS: guaiFENesin/P-EPHED TABLET 1 TAB PO ×2 (08:38→20:05)
[2024-08-14] MEDS: ASPIRIN EC 81 MG TABEC PO (08:38)
[2024-08-14] MEDS: LOSARTAN POTASSIUM 25 MG TABLET PO (11:18)
[2024-08-14] MEDS: PANTOPRAZOLE 20 MG TABLET PO (11:19)
[2024-08-14] MEDS: FERROUS SULF 325 MG TABLET PO (11:20)
[2024-08-14] MEDS: Furosemide 40 MG TABLET PO (11:20)
[2024-08-14] MEDS: INSULIN LISPRO (AdmeLOG) 1 UNIT/0.01 ML UNIT SC (11:26)
--- NOTE | 2024-08-14 15:19 | ESPR_ITS ---
Documentation for date of: 08/14/24 Subjective Subjective Interval history: Patient seen at bedside. No acute overnight events. Patient is saturating 98% on room air, has no difficulty breathing while he still has a slight cough. Plan for discharge today, however patient's partner is not comfortable yet with him being discharged and wonders if he will need home oxygen. Ordered PT evaluation for patient and we will proceed based on that. Exam Vital Signs Temp Pulse Resp BP Pulse Ox O2 Del Method O2 Flow Rate 97.4 F 80 17 140/75 H 94 L Nasal Cannula 2 08/14/24 12:00 08/14/24 12:00 08/14/24 12:00 08/14/24 12:00 08/14/24 12:00 08/14/24 08:00 08/14/24 08:00 Narrative Exam GENERAL: AAOX3 NEURO: PERCH MACHINE INSPECTOR grossly intact, moves extremities x4 HEENT: Moist mucosa. Eyes open, symmetrical, & clear CARDIO: No chest pain on palpation. Heart RRR, no obvious murmurs PULM: No noted coughing/dyspnea. Lungs CTA B/L GI: Abdomen soft, nondistended, no pain on palpation. BSx4 URO/SUPERINTENDENT GAS DISTRIBUTION:: No further abnormalities noted. SKIN/MSK/EXT: No wounds/rashes/edema/amputations, no pain on palpation. Pedal pulses present B/L Objective Labs 08/15/24 05:45 08/15/24 05:45 Labs: Laboratory Results - last 24 hr 08/14/24 05:01 WBC 4.2 RBC 3.34 L Hgb 10.8 L Hct 32.7 L MCV 98 MCH 32.3 MCHC 33.0 RDW Std Deviation 48.2 H Plt Count 132 L Neut % (Auto) 45 Lymph % (Auto) 43 [place] % (Auto) 8 Eos % (Auto) 3 Baso % (Auto) 1 Neut # (Auto) 1.9 Lymph # (Auto) 1.8 [place] # (Auto) 0.3 Eos # (Auto) 0.1 Baso # (Auto) 0.0 Immature Gran # (Auto) 0.02 H Absolute Nucleated RBC 0.00 Immature Gran % 1 H Nucleated RBC % 0 PT 26.5 H INR 2.6 H Sodium 139 Potassium 3.9 Chloride 102 Carbon Dioxide 30.7 Anion Gap 6 L BUN 32 H Creatinine 0.9 Estim Creat Clear Calc 69.2 eGFR > 60 BUN/Creatinine Ratio 36 H Glucose 117 H Calculated Osmolality 285 Calcium 8.7 Corrected Calcium 9.0 Phosphorus 2.6 Magnesium 2.0 Total Bilirubin 0.8 AST 67 H ALT 58 H Alkaline Phosphatase 102 Total Protein 6.4 Albumin 3.6 Globulin 2.8 Albumin/Globulin Ratio 1.3 ABG Interpretation ABG results: 08/11/24 11:44 VBG pH 7.51 VBG pCO2 29 L VBG pO2 53 VBG Base Excess 1 Quality Measures Quality Measures none Advance care planning discussed with:: patient Assessment & Plan Assessment Current Active Medications: Generic Name Dose Route Start Last Admin Trade Name Freq PRN Reason Stop Dose Admin Acetaminophen 650 mg 08/12/24 13:52 Acetaminophen 325 Mg Tablet PO 09/10/24 15:09 Q6H PRN Pain 1-3 or Fever >100.1 Albuterol/Ipratropium 3 ml 08/13/24 10:33 08/13/24 10:53 Albuterol/Ipratropium (Duoneb) Rt Daisy 3 Ml Nebu INH 09/12/24 10:59 3 ml Q4HRRT PRN Administration wheezing Aspirin 81 mg 08/11/24 15:30 08/14/24 08:38 Aspirin Ec 81 Mg Tabec PO 09/10/24 15:29 81 mg QDAY RONEL Administration Azithromycin 250 mg 08/12/24 09:00 08/14/24 08:38 Azithromycin 250 Mg Tablet PO 08/16/24 08:59 250 mg QDAY RONEL Administration Dextrose 50 ml 08/11/24 15:47 Dextrose 50%-Water Inj 50 Ml Syringe IV 09/10/24 15:46 Q15MIN PRN BG <50 OR BG <70 & pt unresponsive Ferrous Sulfate 325 mg 08/14/24 08:45 08/14/24 11:22 Ferrous Sulf 325 Mg Tablet PO 09/13/24 08:44 Not Given QOD RONEL Furosemide 40 mg 08/14/24 09:00 08/14/24 11:20 Furosemide 40 Mg Tablet PO 09/13/24 08:59 40 mg QDAY RONEL Administration Glucagon 1 mg 08/11/24 15:47 Glucagon Inj 1 Mg Vial IM Q15MIN PRN BG <70, and no IV access Guaifenesin 1 tab 08/11/24 21:00 08/14/24 08:38 Guaifenesin/P-Ephed Tablet PO 09/10/24 20:59 1 tab BID RONEL Administration Ceftriaxone Sodium 1,000 mg/ 50 mls @ 100 mls/hr 08/14/24 09:00 08/14/24 08:38 Sodium Chloride IV 08/18/24 15:19 100 mls/hr QDAY RONEL Administration Insulin Human Lispro 0 unit 08/11/24 17:00 08/14/24 11:26 Insulin Lispro (Admelog) 1 Unit/0.01 Ml Unit SC 09/10/24 16:59 1 unit AC RONEL Administration Protocol Losartan Potassium 25 mg 08/14/24 09:00 08/14/24 11:18 Losartan Potassium 25 Mg Tablet PO 09/13/24 08:59 25 mg QDAY RONEL Administration Ondansetron HCl 4 mg 08/11/24 15:10 Ondansetron Inj 2 Mg/Ml Inj 2 Ml IV 09/10/24 15:09 Q6H PRN NAUSEA OR VOMITING Protocol Pantoprazole Sodium 20 mg 08/14/24 09:00 08/14/24 11:19 Pantoprazole 20 Mg Tablet PO 09/13/24 08:59 20 mg QDAY RONEL Administration Promethazine HCl/Dextromethorphan 5 ml 08/11/24 15:20 Promethazine/Dm Syrup 5 Ml Dose PO 09/10/24 15:19 Q6HR PRN COUGH Protocol Sennosides 1 tab 08/12/24 09:00 08/14/24 08:38 Senna Tablet PO 09/11/24 08:59 1 tab QDAY RONEL Administration Protocol Tamsulosin HCl 0.4 mg 08/12/24 09:00 08/14/24 08:38 Tamsulosin Hcl 0.4 Mg Capsule PO 09/11/24 08:59 0.4 mg QDAY RONEL Administration Warfarin Sodium 3 mg 08/12/24 14:45 08/13/24 12:59 Warfarin 1 Mg Tablet PO 08/26/24 14:44 3 mg DAILY@1200 [facility] Administration Plan The patient is an 89-year-old male with a past medical history of hypertension, hyperlipidemia, type II DM, ?valvular heart disease, pulmonary nodules, BPH, A- fib on warfarin who presented to the ED on 08/11/2024 with complaints of shortness of breath and cough that have been going on for about a week. #Acute hypoxic respiratory failure. #RSV pneumonia versus bacterial. #CHF exacerbation. The patient presented with a 1 week history of shortness of breath and nonproductive cough. He does mention that he has had a chronic cough for about 6 months which has gotten worse over the last week with associated shortness of breath that has made it difficult for him to do both his activities of daily living others. He initially presented yesterday but left AMA. COVID and influenza negative but RSV positive. BNP elevated at 825. Chest CT shows moderate vascular congestion with soft areas of pneumonia prominent in left base and mediastinal lymphadenopathy. Patient does not know about a history of heart failure but since having prescribed Lasix in the past. He is being followed by travel administrator Dr. Mcgee. No previous echocardiogram on file. 08/14/2024- Patient off of oxygen, saturating 98% on room air. Sputum culture positive for E.coli Plan: -Continue IV ceftriaxone and azithromycin -Continue IV Lasix 20 mg daily -Cardiology consulted, appreciate recommendations #Elevated troponin levels. On presentation to the ED yesterday, labs showed elevated troponin of 0.08. Patient denies any chest pain. Plan: -Continue to trend troponins -Aspirin 81 mg daily #History of chronic A-fib. #History of ?valvular heart disease. #Therapeutic INR. The patient does mention that he has had a history of A-fib and while he is unsure thinks this is why he is on warfarin. He checks his INR monthly but does not remember what the last value was. EKG this admission shows atrial fibrillation, rate controlled. INR-2.5. Cardiology confirmed he is on warfarin due to chronic A-fib. CHADVASC- 5/6 HASBLED- 2/3 08/14/2024- INR today- 2.6. Cardiology consulted on warfarin dosing. Recommends to start at 3mg today with an INR goal of 2-3. Plan: -Warfarin 3mg -Cardiology consulted, appreciate recommendations -Continue to monitor #History of hypertension. Patient has a history of hypertension is on lisinopril 20 mg daily. Blood pressure on admission-149/90. BUN from yesterday's labs 26. Will consider adding lisinopril once the labs are outside or alternative antihypertensive. Plan: -Continue to monitor blood pressure -Losartan 25mg PO daily #History of type II DM. Patient has a history of type II DM and is on leukocyte 5 mg twice daily last A1c done about 4 months ago-6.9 Plan: -ISS -A1c -Blood glucose check AC -Hypoglycemic protocols in place #Likely history of liver cirrhosis. The patient denies any history of alcohol. Abdominal CT from September 2023 showed cirrhosis with mild ascites. On labs, patient has elevated transaminases, hyperbilirubinemia and elevated ALP. Coagulation profile shows elevated PT and APTT. Plan: -Continue monitoring CMP #History of BPH. Patient has a history of BPH confirmed by abdominal CT done which showed prostatomegaly. He is on tamsulosin 0.4 mg twice daily.. Plan: -Resume home meds Health maintenance: Dispo:Tele Obs Diet: Carb consistent/cardiac DVT: Warfarin Lopez: None Lines: Peripheral Code: Full code. Case was discussed with Dr Elizabeth PGY-2 and attending physician, Dr David Strong MD PGY-1 Disclaimer: This note was dictated by speech recognition. Minor errors in pathology laboratory aide may be present due to voice recognition software. Attending Provider Attestation/Addendum I reviewed labs, imaging, EKG, home medications and prior available records. Face to face evaluation was performed by me. I have personally examined the patient and discussed assessment and plan with the IM team. I reviewed the resident note and agree with the plan with exceptions as below. Acute hypoxic respiratory failure Non-STEMI Possible CHF RSV infection Possible multifocal pneumonia Elevated INR/possible history of A-fib Pulmonary nodules Continue oxygen as needed Troponin peaked P.o. Lasix 40 mg daily upon discharge Consult cardiology Dr. Mcgee: Recommended echocardiogram. Echo showed EF of 50 to 55% with elevated RSVP Started ceftriaxone/azithromycin Resume home aspirin Resumed warfarin Monitor PT/INR Outpatient monitor of the pulmonary nodules with CT scan. Follow-up with PCP Discussed with the patient's mva reactor operator head and the son. The caregiver is currently sick. There is some concerns that she will not be able to take care of him at all until she feels better. Discussed with social media marketing analyst: Ordered PT evaluation
[2024-08-14] MEDS: WARFARIN 1 MG TABLET 3 MG PO (15:42)
[2024-08-15] VITALS (9 sets, daily range): BP systolic 116–139; BP diastolic 66–86; PULSE 73–92; RESP 18–99; TEMP 36–36.4; O2SAT 93–99; BMI 27.8
[2024-08-15 06:16] LABS: Basophils % (Auto) 0 % (0-2.5); Eosinophils # (Auto) 0.1 Thou/mm3 (0.0-0.5); Eosinophils % (Auto) 2 % (0-10); Hematocrit 34.8 % (41.0-53.0); Hemoglobin 11.5 g/dL (13.5-16.0); Immature Granulocytes % (Auto) 0 % (0-0); Immature Granulocytes Auto 0.02 Thou/mm3 (0.00-0.00); Lymphocytes # (Auto) 1.9 Thou/mm3 (1.0-4.8); Lymphocytes % (Auto) 36 % (10-50); Mean Corpuscular Hemoglobin 32.5 pg (25.0-35.0); Mean Corpuscular Volume 98 fL (80-100); Monocytes # (Auto) 0.4 Thou/mm3 (0.0-0.8); Monocytes % (Auto) 8 % (0-12); Neutrophils # (Auto) 2.9 Thou/mm3 (1.8-7.7); Neutrophils % (Auto) 53 % (37-80); Nucleated Red Blood Cell % 0 /100 WBC (0); Platelet Count 153 Thou/mm3 (140-440); RDW Standard Deviation 47.4 fL (35.1-43.9); Red Blood Count 3.54 Miln/mm3 (4.50-5.90); White Blood Count 5.3 Thou/mm3 (3.8-10.6)
[2024-08-15 06:22] LABS: INR 2.3 (0.9-1.3)
[2024-08-15 06:33] LABS: Prothrombin Time 23.3 Seconds (9.0-12.2)
[2024-08-15 06:35] LABS: Alanine Aminotransferase 49 U/L (10-49); Albumin, Serum 3.5 gm/dL (3.4-4.8); Albumin/Globulin Ratio 1.1 (1.2-2.2); Alkaline Phosphatase 102 U/L (46-116); Anion Gap 5 (7-16); Aspartate Amino Transferase 46 U/L (0-34); BUN/Creatinine Ratio 34 Ratio (12-20); Bilirubin,Total 0.8 mg/dL (0.3-1.2); Blood Urea Nitrogen 27 mg/dL (9-23); Calcium 8.7 mg/dL (8.3-10.6); Calcium (Corrected) 9.1 mg/dL (8.5-10.1); Carbon Dioxide 30.3 mMol/L (20.0-31.0); Chloride 105 mMol/L (98-107); Creatinine (Component) 0.8 mg/dL (0.6-1.3); Globulin 3.1 gm/dL (2.3-3.5); Glucose 130 mg/dL (74-106); Osmolality,Calculated 286 (275-295); Potassium 3.6 mMol/L (3.4-5.1); Sodium 140 mMol/L (136-145); Total Protein 6.6 gm/dL (5.7-8.2); eGFR > 60 See Note
[2024-08-15] MEDS: SENNA TABLET 1 TAB PO (08:50)
[2024-08-15] MEDS: AZITHROMYCIN 250 MG TABLET PO (08:50)
[2024-08-15] MEDS: LOSARTAN POTASSIUM 25 MG TABLET PO (08:50)
[2024-08-15] MEDS: Furosemide 40 MG TABLET PO (08:51)
[2024-08-15] MEDS: guaiFENesin/P-EPHED TABLET 1 TAB PO (08:51)
[2024-08-15] MEDS: PANTOPRAZOLE 20 MG TABLET PO (08:51)
[2024-08-15] MEDS: ASPIRIN EC 81 MG TABEC PO (08:51)
[2024-08-15] MEDS: cefTRIAXone 1,000 MG in SODIUM CHLORIDE 0.9% (P) 50 ML 100 MG IV (08:51)
[2024-08-15] MEDS: TAMSULOSIN HCL 0.4 MG CAPSULE PO (08:51)
[2024-08-15] MEDS: WARFARIN 1 MG TABLET 3 MG PO (13:07)
[2024-08-15] MEDS: INSULIN LISPRO (AdmeLOG) 1 UNIT/0.01 ML UNIT SC (13:07)
--- NOTE | 2024-08-15 14:23 | PC.SS ---
Addendum entered by NALLELY Quinn 08/15/24 16:45: Updated medical team and attending Dr. Hernandez informs that they have spoke to the patient and significant other regarding d/c plan. Patient willing to go to SNF. Attending informs that per patient's significant other, Odalis she informed she will be coming by today to supervisor picking crew the patient today to take him home and provide transport for patient home. Updated bed side nurse Sosa. Addendum entered by NALLELY Quinn 08/15/24 15:20: SS follow up: spoke with patient's life partner, Odalis Calhoun. She has declined SNF placement for the patient and states the patient unwilling to go to SNF. dOalis informs she would like to speak to the medical team as she was informed the patient would remain in the hospital a couple more days to continue being treated. Odalis disclosed she is also RSV positive and informs ideally able to help care for the patient once she medically stable. Addendum entered by NALLELY Quinn 08/15/24 14:26: SS follow up: attempted contact with patient's , Odalis Corral to discuss the recommendation. Left a voicemail as she was unavailable. Original Note: Rounding note: team is recommending short term SNF for the patient. SS to follow up on d/c plan.
--- NOTE | 2024-08-15 14:33 | PC.PT ---
Patient will be dc from PT services secondary to goals achieved. Patient is I with transfers and ambulation without AD.
--- NOTE | 2024-08-15 14:46 | ESPR_ITS ---
Documentation for date of: 08/15/24 Subjective Subjective Interval history: Patient seen at bedside. No acute overnight events. Patient is doing well, saturating 98% on room air. Still has a slight cough but not really bothersome. Decision has been made for patient to go to SNF as he is declining outpatient physical therapy and family is not convinced they can take care of him or that he can take care of himself. Sputum culture returned positive for E. coli, he still on IV ceftriaxone. 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 Eyes open, symmetrical, & clear CARDIO: No chest pain on palpation. Heart RRR, no obvious murmurs PULM: No noted coughing/dyspnea. Lungs CTA B/L, no R/W/R GI: Abdomen soft, nondistended, no pain on palpation. BSx4 URO/HEALTH SCIENCE SPECIALIST:: No further abnormalities noted. Lopez catheter/cannister _ SKIN/MSK/EXT: No wounds/rashes/edema/amputations, no pain on palpation. Pedal pulses present B/L Objective Labs 08/15/24 05:45 08/15/24 05:45 Labs: Laboratory Results - last 24 hr 08/15/24 05:45 WBC 5.3 RBC 3.54 L Hgb 11.5 L Hct 34.8 L MCV 98 MCH 32.5 MCHC 33.0 RDW Std Deviation 47.4 H Plt Count 153 Neut % (Auto) 53 Lymph % (Auto) 36 Coleman % (Auto) 8 Eos % (Auto) 2 Baso % (Auto) 0 Neut # (Auto) 2.9 Lymph # (Auto) 1.9 Coleman # (Auto) 0.4 Eos # (Auto) 0.1 Baso # (Auto) 0.0 Immature Gran # (Auto) 0.02 H Absolute Nucleated RBC 0.00 Immature Gran % 0 Nucleated RBC % 0 PT 23.3 H D INR 2.3 H Sodium 140 Potassium 3.6 Chloride 105 Carbon Dioxide 30.3 Anion Gap 5 L BUN 27 H Creatinine 0.8 Estim Creat Clear Calc 78.0 eGFR > 60 BUN/Creatinine Ratio 34 H Glucose 130 H Calculated Osmolality 286 Calcium 8.7 Corrected Calcium 9.1 Total Bilirubin 0.8 AST 46 H ALT 49 Alkaline Phosphatase 102 Total Protein 6.6 Albumin 3.5 Globulin 3.1 Albumin/Globulin Ratio 1.1 L ABG Interpretation ABG results: 08/11/24 11:44 VBG pH 7.51 VBG pCO2 29 L VBG pO2 53 VBG Base Excess 1 Quality Measures Quality Measures none Advance care planning discussed with:: patient Assessment & Plan Assessment Current Active Medications: Generic Name Dose Route Start Last Admin Trade Name Freq PRN Reason Stop Dose Admin Acetaminophen 650 mg 08/12/24 13:52 Acetaminophen 325 Mg Tablet PO 09/10/24 15:09 Q6H PRN Pain 1-3 or Fever >100.1 Albuterol/Ipratropium 3 ml 08/13/24 10:33 08/13/24 10:53 Albuterol/Ipratropium (Duoneb) Rt Daisy 3 Ml Nebu INH 09/12/24 10:59 3 ml Q4HRRT PRN Administration wheezing Aspirin 81 mg 08/11/24 15:30 08/15/24 08:51 Aspirin Ec 81 Mg Tabec PO 09/10/24 15:29 81 mg QDAY RONEL Administration Azithromycin 250 mg 08/12/24 09:00 08/15/24 08:50 Azithromycin 250 Mg Tablet PO 08/16/24 08:59 250 mg QDAY RONEL Administration Dextrose 50 ml 08/11/24 15:47 Dextrose 50%-Water Inj 50 Ml Syringe IV 09/10/24 15:46 Q15MIN PRN BG <50 OR BG <70 & pt unresponsive Ferrous Sulfate 325 mg 08/14/24 08:45 08/14/24 11:22 Ferrous Sulf 325 Mg Tablet PO 09/13/24 08:44 Not Given QOD RONEL Furosemide 40 mg 08/14/24 09:00 08/15/24 08:51 Furosemide 40 Mg Tablet PO 09/13/24 08:59 40 mg QDAY RONEL Administration Glucagon 1 mg 08/11/24 15:47 Glucagon Inj 1 Mg Vial IM Q15MIN PRN BG <70, and no IV access Guaifenesin 1 tab 08/11/24 21:00 08/15/24 08:51 Guaifenesin/P-Ephed Tablet PO 09/10/24 20:59 1 tab BID RONEL Administration Ceftriaxone Sodium 1,000 mg/ 50 mls @ 100 mls/hr 08/14/24 09:00 08/15/24 08:51 Sodium Chloride IV 08/18/24 15:19 100 mls/hr QDAY RONEL Administration Insulin Human Lispro 0 unit 08/11/24 17:00 08/15/24 13:07 Insulin Lispro (Admelog) 1 Unit/0.01 Ml Unit SC 09/10/24 16:59 1 unit AC RONEL Administration Protocol Losartan Potassium 25 mg 08/14/24 09:00 08/15/24 08:50 Losartan Potassium 25 Mg Tablet PO 09/13/24 08:59 25 mg QDAY RONEL Administration Ondansetron HCl 4 mg 08/11/24 15:10 Ondansetron Inj 2 Mg/Ml Inj 2 Ml IV 09/10/24 15:09 Q6H PRN NAUSEA OR VOMITING Protocol Pantoprazole Sodium 20 mg 08/14/24 09:00 08/15/24 08:51 Pantoprazole 20 Mg Tablet PO 09/13/24 08:59 20 mg QDAY RONEL Administration Promethazine HCl/Dextromethorphan 5 ml 08/11/24 15:20 Promethazine/Dm Syrup 5 Ml Dose PO 09/10/24 15:19 Q6HR PRN COUGH Protocol Sennosides 1 tab 08/12/24 09:00 08/15/24 08:50 Senna Tablet PO 09/11/24 08:59 1 tab QDAY RONEL Administration Protocol Tamsulosin HCl 0.4 mg 08/12/24 09:00 08/15/24 08:51 Tamsulosin Hcl 0.4 Mg Capsule PO 09/11/24 08:59 0.4 mg QDAY RONEL Administration Warfarin Sodium 3 mg 08/12/24 14:45 08/15/24 13:07 Warfarin 1 Mg Tablet PO 08/26/24 14:44 3 mg DAILY@1200 RONEL Administration Plan The patient is an 89-year-old male with a past medical history of hypertension, hyperlipidemia, type II DM, ?valvular heart disease, pulmonary nodules, BPH, A- fib on warfarin who presented to the ED on 08/11/2024 with complaints of shortness of breath and cough that have been going on for about a week. #Acute hypoxic respiratory failure. #RSV pneumonia versus bacterial. #CHF exacerbation. The patient presented with a 1 week history of shortness of breath and nonproductive cough. He does mention that he has had a chronic cough for about 6 months which has gotten worse over the last week with associated shortness of breath that has made it difficult for him to do both his activities of daily living others. He initially presented yesterday but left AMA. COVID and influenza negative but RSV positive. BNP elevated at 825. Chest CT shows moderate vascular congestion with soft areas of pneumonia prominent in left base and mediastinal lymphadenopathy. Patient does not know about a history of heart failure but since having prescribed Lasix in the past. He is being followed by electronics design engineer Dr. Mcgee. No previous echocardiogram on file. 08/15/2024- Patient off of oxygen, saturating 98% on room air. Sputum culture positive for E.coli Plan: -Continue IV ceftriaxone and azithromycin -Continue IV Lasix 20 mg daily -Pending SNF placement -Cardiology consulted, appreciate recommendations #Elevated troponin levels. On presentation to the ED yesterday, labs showed elevated troponin of 0.08. Patient denies any chest pain. Plan: -Continue to trend troponins -Aspirin 81 mg daily #History of chronic A-fib. #History of ?valvular heart disease. #Therapeutic INR. The patient does mention that he has had a history of A-fib and while he is unsure thinks this is why he is on warfarin. He checks his INR monthly but does not remember what the last value was. EKG this admission shows atrial fibrillation, rate controlled. INR-2.5. Cardiology confirmed he is on warfarin due to chronic A-fib. CHADVASC- 5/6 HASBLED- 2/3 08/15/2024- INR today- 2.3. Cardiology consulted on warfarin dosing. Recommends to start at 3mg today with an INR goal of 2-3. Plan: -Warfarin 3mg -Cardiology consulted, appreciate recommendations -Continue to monitor #History of hypertension. Patient has a history of hypertension is on lisinopril 20 mg daily. Blood pressure on admission-149/90. BUN from yesterday's labs 26. Will consider adding lisinopril once the labs are outside or alternative antihypertensive. Plan: -Continue to monitor blood pressure -Losartan 25mg PO daily #History of type II DM. Patient has a history of type II DM and is on leukocyte 5 mg twice daily last A1c done about 4 months ago-6.9 Plan: -ISS -A1c -Blood glucose check AC -Hypoglycemic protocols in place #Likely history of liver cirrhosis. The patient denies any history of alcohol. Abdominal CT from September 2023 showed cirrhosis with mild ascites. On labs, patient has elevated transaminases, hyperbilirubinemia and elevated ALP. Coagulation profile shows elevated PT and APTT. Plan: -Continue monitoring CMP #History of BPH. Patient has a history of BPH confirmed by abdominal CT done which showed prostatomegaly. He is on tamsulosin 0.4 mg twice daily.. Plan: -Resume home meds Health maintenance: Dispo:Tele Obs Diet: Carb consistent/cardiac DVT: Warfarin Lopez: None Lines: Peripheral Code: Full code. Case was discussed with Dr Wilson PGY-2 and attending physician, Dr David Strong MD PGY-1 Disclaimer: This note was dictated by speech recognition. Minor errors in patch sander may be present due to voice recognition software. Attending Provider Attestation/Addendum I reviewed labs, imaging, EKG, home medications and prior available records. Face to face evaluation was performed by me. I have personally examined the patient and discussed assessment and plan with the IM team. I reviewed the resident note and agree with the plan with exceptions as below. Acute hypoxic respiratory failure Non-STEMI CHF exacerbation RSV infection Possible multifocal pneumonia Atrial fibrillation on warfarin Pulmonary nodules He is on room air Complete a course of amoxicillin/azithromycin. He does not need to stay in the hospital for that P.o. Lasix 40 mg daily upon discharge Consult cardiology Dr. Mcgee: Recommended echocardiogram. Echo showed EF of 50 to 55% with elevated RSVP Started ceftriaxone/azithromycin Resume home aspirin Resumed warfarin. Monitor PT/INR as outpatient and follow-up with cardiology Monitor PT/INR Outpatient monitor of the pulmonary nodules with CT scan. Patient was made aware of those abnormal findings. Follow-up with PCP Discussed with the patient's flame brazing machine operator. See event note. He will be discharged home as she does not want him to go to SNF Time spent is 45 minutes. More than 50% of the time was spent on patient education and coordination of care.
--- NOTE | 2024-08-15 16:48 | PD.EVENT ---
Documentation for date of: 08/15/24 Event Note Event Note: Discussed the plan with the patient's caregiver and domestic partner Odalis. The caregiver was very upset because we planned to discharge the patient. The patient is on room air and all his symptoms are improving. His labs are stable. He is medically cleared. I explained to her that having pneumonia does not necessarily mean that the patient has to stay to complete his antibiotics. She demanded that he stays in the hospital for additional 2 to 3 days for the complete resolution of the pneumonia. I explained to her that he is no longer meeting the criteria for inpatient. She mentioned that she has RSV and she cannot take care of him at home until he improves in 2 to 3 days. as she cannot take care of him, the conclusion was that there will be no safe home environment for the next few days, for which I discussed the case with the social media marketing specialist and the plan was to go for a short term SNF. Patient himself is agreeable to go to short-term SNF if his domestic partner is unable to take care of him. He does have capacity and is able to make his own decisions. Patient does not want to stay in the hospital for additional 2 to 3 days, if possible, but agreeable to go to SNF. He understands that he is medically cleared for discharge, but accepts SNF if there is no other safe choice. Although the caregiver is listed as a decision maker, however, as the patient does have capacity, she cannot take decisions on behalf of him at this time. When I told her that the patient is agreeable to discharge and to go to SNF, she got very upset and started shouting at me. She said that she will not allow him to go to SNF because some people home she know there. She insisted that we must keep him to achieve complete recovery of his pneumonia in the hospital, not at rehab and not at home. She mentioned to me her plans to file a complaint to the hospital administration. She then hung up the phone on my face. She mentioned that she will be coming to pick him up today 08/15 because she will not allow us to send him to SNF. Case was discussed with the social media marketing specialist and with the resident team.
--- NOTE | 2024-08-16 13:58 | PD.RESDS ---
Planned Discharge Date 08/16/24 DS: Providers Provider Date of admission: 08/13/24 07:36 Primary care physician: Chris Osei MD Admitting Provider: Brian Hernandez MD Attending Provider on Admission: Alan Strong MD Consults: 08/11/24 15:39 Consult to Cardiology Routine Comment: Consulting Provider: Minor Mcgee 08/14/24 14:31 Referral Physical Therapy Stat Comment: Physician Instructions: Instructions: in preparation for DC Attending Provider on DC: Alan Strong MD Discharging Provider: Alan Strong MD DS: Diagnosis Problem List Completed Was Problem List Reviewed/Reconciled?: Yes Hospital Course Hospital Course Hospital course: The patient is an 89-year-old male with a past medical history of hypertension, hyperlipidemia, type II DM, pulmonary nodules, BPH, A-fib on warfarin who presented to the ED 08/11/2024 with complaints of shortness of breath and cough that are been going on for about a week. Patient had presented the day prior with similar symptoms but left AMA, however as his cough and shortness of breath worsened return to the ED. Viral testing done and RSV returned positive. In the ED, patient was noted to be hypoxic and was placed on 2 l of oxygen as well as 1 dose of Lasix given and admitted for acute hypoxic respiratory failure secondary to viral pneumonia, possible superimposed bacterial and CHF exacerbation. He was started on antibiotics as well as Lasix 20 mg daily. Additionally, the patient is on warfarin for chronic A-fib and has been followed by maintenance machinist Dr. Dave. On admission, INR was 2.8. Cardiology was consulted and recommended to get recommend the patient's warfarin with target range of 2- 3 .Sputum culture returned positive for E. coli. Although there was some social issue with patient's physicist acoustics, the patient was clinically and hemodynamically stable, saturating 98% on room air and was medically cleared for discharge. He will continue to take amoxicillin 1 g 3 times daily for 5 days and azithromycin 250 mg for 3 more days. He is recommended to follow-up with his PCP and cardiology within 2 weeks of discharge and continue INR check. #Acute hypoxic respiratory failure #RSV pneumonia versus bacterial #CHF exacerbation #History of chronic A-fib #Elevated troponins #History of hypertension Discharge instructions: Continue home medications as prescribed. Take amoxicillin 1g 3 times a day for 5 days. Take azithromycin 250 mg daily for 3 days. Continue home medications as prescribed. Follow up with PCP and cardiology within 2 weeks. Continue checking INR as instructed by cardiology. Use home oxygen daily. Case was discussed with Dr Wilson PGY-2 and attending physician, Dr David Strong MD PGY-1 Disclaimer: This note was dictated by speech recognition. Minor errors in infection control practitioner may be present due to voice recognition software. Status at Discharge Overall status at discharge: patient is back to baseline Time Spent with Patient Time attestation: Total time spent providing and/or coordinating discharge services: Time spent: Greater than 30 minutes Exam Vital Signs Temp Pulse Resp BP Pulse Ox O2 Del Method O2 Flow Rate 96.8 F 92 18 116/66 93 L Room Air 2 08/15/24 16:00 08/15/24 16:00 08/15/24 16:00 08/15/24 16:00 08/15/24 16:08/15/24 16:08/15/24 08:00 Narrative Exam GENERAL: AAOX3 NEURO: WIND TURBINE ELECTRICAL ENGINEER grossly intact, moves extremities x4 HEENT: Moist mucosa. Eyes open, symmetrical, & clear CARDIO: No chest pain on palpation. Heart RRR, no obvious murmurs PULM: No noted coughing/dyspnea. Lungs CTA B/L GI: Abdomen soft, nondistended, no pain on palpation. BSx4 URO/INTERIOR ASSEMBLIES DEVELOPER PROVER:: No further abnormalities noted. SKIN/MSK/EXT: No wounds/rashes/edema/amputations, no pain on palpation. Pedal pulses present B/L Discharge Plan Plan Patient Disposition: HOME (Self Care) Disposition Comment: Stable Care Plan Goals: Continue home medications as prescribed. Take amoxicillin 1g 3 times a day for 5 days. Take azithromycin 250 mg daily for 3 days. Continue home medications as prescribed. Follow up with PCP and cardiology within 2 weeks. Continue checking INR as instructed by cardiology. Use home oxygen daily. Prescriptions/Referrals Prescriptions/Med Rec: New amoxicillin 500 mg tablet 1,000 mg PO TID 5 Days Qty: 30 0RF Continued furosemide 40 mg tablet 40 mg PO DAILY Patient Comments: TAKE 1 TABLET BY MOUTH ONCE DAILY ferrous sulfate [FeroSul] 325 mg (65 mg iron) tablet 325 mg PO DAILY Patient Comments: TAKE 1 TABLET BY MOUTH ONCE DAILY potassium chloride 20 mEq tablet extended release 20 meq PO DAILY Patient Comments: TAKE 1 TABLET BY MOUTH ONCE DAILY tamsulosin 0.4 mg capsule 0.4 mg PO DAILY Patient Comments: TAKE 1 CAPSULE BY MOUTH TWICE DAILY warfarin 2.5 mg tablet 4 mg PO DAILY Patient Comments: TAKE 1 TABLET BY MOUTH ONCE DAILY omeprazole 20 mg capsule,delayed release(DR/EC) 20 mg PO DAILY Patient Comments: TAKE 1 CAPSULE BY MOUTH ONCE DAILY 30 MINUTES BEFORE MORNING MEAL glipizide 5 mg tablet 5 mg PO BID Patient Comments: TAKE 1 TABLET BY MOUTH TWICE DAILY 30 MINUTES BEFORE A MEAL lisinopril 10 mg tablet 10 mg PO DAILY Referrals: Chris Osei MD [Primary Care Provider] - Patient/Caregiver Discharge Instructions Education Materials: RSV (Respiratory Syncytial Virus) Print Language: Macedonian Stand Alone Forms: Natty Award Info., Patient Portal Info Letter Discharge Order Discharge Orders: Discharge (Routine); Ordered 08/15/24 Ordered By: Alan Strong Quality Discharge Quality Measures VTE prophylaxis
== END 2024-08-15 17:04 | disposition home or self-care (01) | DRG 193 ==
LOC: SERX 14:20 → SERHOLD 16:04 → S3SX 08-13 06:45
PROVIDERS: Internal Medicine Cardiovascular Disease; Nurse Practitioner Family; Admitting Provider Student in an Organized Health Care Education/Training Program; Emergency Provider Emergency Medicine; PCP Family Medicine
DX: J12.1 Respiratory syncytial virus pneumonia (principal); J96.01 Acute respiratory failure with hypoxia; I48.20 Chronic atrial fibrillation, unspecified; R18.8 Other ascites; E11.9 Type 2 diabetes mellitus without complications; I50.9 Heart failure, unspecified; I11.0 Hypertensive heart disease with heart failure; N40.0 Benign prostatic hyperplasia without lower urinary tract symptoms; E78.5 Hyperlipidemia, unspecified; K74.60 Unspecified cirrhosis of liver; Z79.01 Long term (current) use of anticoagulants; R79.1 Abnormal coagulation profile; R05.3 Chronic cough; R59.0 Localized enlarged lymph nodes; Z11.52 Encounter for screening for COVID-19; Z79.82 Long term (current) use of aspirin; Z79.899 Other long term (current) drug therapy; Z79.84 Long term (current) use of oral hypoglycemic drugs; R79.89 Other specified abnormal findings of blood chemistry
CPT/HCPCS: 36415; 71250; 80053; 80307; 82803; 83036; 83605; 83735; 83880; 84100; 84145; 84443; 84484; 85025; 85610; 85730; 86140; 87040; 87077; 87081; 87186; 87205; 87400; 87634; 87811; 93005; 93225; 93306; 94640; 94664; 96365; 96375; 99285; A9270; G0378; J0696; J1815; J1940; J3010; J7050

== ENCOUNTER → 2024-09-03 | Outpatient (CLI) | payer MEDICARE, BC, SELFPAY ==
[2024-09-03 10:38] LABS: INR 2.2 (0.9-1.3); Prothrombin Time 22.8 Seconds (9.0-12.2)
== END | disposition home or self-care (01) ==
LOC: COPL 09:52
PROVIDERS: PCP Family Medicine; Referring Provider Family Medicine; Visit Provider Family Medicine
DX: I10 Essential (primary) hypertension (principal); I25.118 Atherosclerotic heart disease of native coronary artery with other forms of angina pectoris
CPT/HCPCS: 36415; 85610

== ENCOUNTER → 2024-09-11 | Outpatient (CLI) | payer MEDICARE, BC, SELFPAY ==
[2024-09-11 13:20] LABS: INR 5.7 (0.9-1.3)
[2024-09-11 13:23] LABS: Prothrombin Time 54.9 Seconds (9.0-12.2)
== END | disposition home or self-care (01) ==
LOC: COPL 11:29
PROVIDERS: PCP Family Medicine; Referring Provider Internal Medicine Cardiovascular Disease; Visit Provider Internal Medicine Cardiovascular Disease
DX: I10 Essential (primary) hypertension (principal); I25.118 Atherosclerotic heart disease of native coronary artery with other forms of angina pectoris
CPT/HCPCS: 36415; 85610

== ENCOUNTER → 2024-09-14 | Outpatient (CLI) | payer MEDICARE, BC, SELFPAY ==
[2024-09-14 12:27] LABS: Prothrombin Time 29.7 Seconds (9.0-12.2)
[2024-09-14 12:28] LABS: INR 2.9 (0.9-1.3)
== END | disposition home or self-care (01) ==
PROVIDERS: PCP Nurse Practitioner Family; Referring Provider Internal Medicine Cardiovascular Disease; Visit Provider Internal Medicine Cardiovascular Disease
DX: I10 Essential (primary) hypertension (principal); I25.118 Atherosclerotic heart disease of native coronary artery with other forms of angina pectoris
CPT/HCPCS: 36415; 85610

== ENCOUNTER → 2024-09-28 | Outpatient (CLI) | payer MEDICARE, BC, SELFPAY ==
[2024-09-28 11:49] LABS: INR 2.8 (0.9-1.3); Prothrombin Time 28.3 Seconds (9.0-12.2)
== END | disposition home or self-care (01) ==
LOC: COPL 10:51
PROVIDERS: PCP Family Medicine; Referring Provider Internal Medicine Cardiovascular Disease; Visit Provider Internal Medicine Cardiovascular Disease
DX: I25.118 Atherosclerotic heart disease of native coronary artery with other forms of angina pectoris (principal); I10 Essential (primary) hypertension; I48.20 Chronic atrial fibrillation, unspecified
CPT/HCPCS: 36415; 85610

== ENCOUNTER → 2024-12-03 | Outpatient (CLI) | payer MEDICARE, BC, SELFPAY ==
[2024-12-03 11:27] LABS: Basophils % (Auto) 0 % (0-2.5); Eosinophils # (Auto) 0.1 Thou/mm3 (0.0-0.5); Eosinophils % (Auto) 2 % (0-10); Hematocrit 38.1 % (41.0-53.0); Hemoglobin 13.2 g/dL (13.5-16.0); Immature Granulocytes % (Auto) 0 % (0-0); Immature Granulocytes Auto 0.01 Thou/mm3 (0.00-0.00); Lymphocytes % (Auto) 35 % (10-50); Mean Corpuscular HGB Conc 34.6 g/dl (31.0-37.0); Mean Corpuscular Hemoglobin 33.9 pg (25.0-35.0); Mean Corpuscular Volume 98 fL (80-100); Monocytes # (Auto) 0.4 Thou/mm3 (0.0-0.8); Monocytes % (Auto) 8 % (0-12); Neutrophils # (Auto) 3.2 Thou/mm3 (1.8-7.7); Neutrophils % (Auto) 56 % (37-80); Nucleated Red Blood Cell % 0 /100 WBC (0); Platelet Count 170 Thou/mm3 (140-440); RDW Standard Deviation 46.9 fL (35.1-43.9); Red Blood Count 3.89 Miln/mm3 (4.50-5.90); White Blood Count 5.7 Thou/mm3 (3.8-10.6)
[2024-12-03 11:43] LABS: INR 2.1 (0.9-1.3); Prothrombin Time 22.1 Seconds (9.0-12.2)
[2024-12-03 11:50] LABS: Glucose Estimated Average 355 mg/dL (80-131); Hemoglobin A1C > 14.0 % Hgb (4.8-6.0)
[2024-12-03 11:51] LABS: Prostate Specific Antigen 2.38 ng/mL (0-4.00)
[2024-12-03 11:54] LABS: Alanine Aminotransferase 23 U/L (10-49); Albumin/Globulin Ratio 1.7 (1.2-2.2); Alkaline Phosphatase 89 U/L (46-116); Anion Gap 9 (7-16); Aspartate Amino Transferase 21 U/L (0-34); BUN/Creatinine Ratio 15 Ratio (12-20); Blood Urea Nitrogen 17 mg/dL (9-23); Calcium 9.4 mg/dL (8.3-10.6); Calcium (Corrected) 9.4 mg/dL (8.5-10.1); Carbon Dioxide 26.2 mMol/L (20.0-31.0); Chloride 97 mMol/L (98-107); Creatinine (Component) 1.1 mg/dL (0.6-1.3); Globulin 2.4 gm/dL (2.3-3.5); Osmolality,Calculated 288 (275-295); Potassium 4.5 mMol/L (3.4-5.1); Sodium 132 mMol/L (136-145); Total Protein 6.4 gm/dL (5.7-8.2); eGFR > 60 See Note
[2024-12-03 12:37] LABS: Glucose 493 mg/dL (74-106)
== END | disposition home or self-care (01) ==
LOC: COPL 10:26
PROVIDERS: PCP Family Medicine; Referring Provider Internal Medicine Cardiovascular Disease; Visit Provider Family Medicine
DX: I48.0 Paroxysmal atrial fibrillation (principal); R53.82 Chronic fatigue, unspecified; R63.1 Polydipsia; E11.65 Type 2 diabetes mellitus with hyperglycemia; I10 Essential (primary) hypertension; N40.1 Benign prostatic hyperplasia with lower urinary tract symptoms; I48.20 Chronic atrial fibrillation, unspecified; I25.118 Atherosclerotic heart disease of native coronary artery with other forms of angina pectoris
CPT/HCPCS: 36415; 80053; 83036; 84153; 85025; 85610

== ENCOUNTER → 2025-01-02 | Outpatient (CLI) | payer MEDICARE, BC, SELFPAY ==
[2025-01-02 10:43] LABS: INR 2.7 (0.9-1.3); Prothrombin Time 27.6 Seconds (9.0-12.2)
== END | disposition home or self-care (01) ==
LOC: COPL 09:39
PROVIDERS: PCP Family Medicine; Referring Provider Internal Medicine Cardiovascular Disease; Visit Provider Internal Medicine Cardiovascular Disease
DX: I48.20 Chronic atrial fibrillation, unspecified (principal); I10 Essential (primary) hypertension; I25.118 Atherosclerotic heart disease of native coronary artery with other forms of angina pectoris
CPT/HCPCS: 36415; 85610

== ENCOUNTER → 2025-02-11 | Outpatient (CLI) | payer MEDICARE, BC, SELFPAY ==
[2025-02-11 16:42] LABS: Glucose Estimated Average 329 mg/dL (80-131); Hemoglobin A1C 13.1 % Hgb (4.8-6.0)
[2025-02-11 16:43] LABS: Alanine Aminotransferase 14 U/L (10-49); Albumin, Serum 4.3 gm/dL (3.4-4.8); Albumin/Globulin Ratio 1.8 (1.2-2.2); Alkaline Phosphatase 87 U/L (46-116); Anion Gap 7 (7-16); Aspartate Amino Transferase 17 U/L (0-34); BUN/Creatinine Ratio 17 Ratio (12-20); Bilirubin,Total 0.7 mg/dL (0.3-1.2); Blood Urea Nitrogen 20 mg/dL (9-23); Calcium 9.3 mg/dL (8.3-10.6); Calcium (Corrected) 9.3 mg/dL (8.5-10.1); Carbon Dioxide 27.7 mMol/L (20.0-31.0); Chloride 105 mMol/L (98-107); Creatinine (Component) 1.2 mg/dL (0.6-1.3); Globulin 2.4 gm/dL (2.3-3.5); Glucose 388 mg/dL (74-106); Osmolality,Calculated 298 (275-295); Potassium 4.4 mMol/L (3.4-5.1); Sodium 140 mMol/L (136-145); Total Protein 6.7 gm/dL (5.7-8.2); eGFR 59 See Note
== END | disposition home or self-care (01) ==
PROVIDERS: PCP Family Medicine; Referring Provider Family Medicine; Visit Provider Internal Medicine Cardiovascular Disease
DX: E11.65 Type 2 diabetes mellitus with hyperglycemia (principal); R63.1 Polydipsia
CPT/HCPCS: 36415; 80053; 83036

== ENCOUNTER 2025-03-18 14:28 | Emergency (ER) | payer MEDICARE, BC, SELFPAY ==
[2025-03-18 14:29] VITALS: BMI 25.7
[2025-03-18 14:46] VITALS: BP 121/68; PULSE 88; RESP 18; TEMP 36.7; O2SAT 96
--- NOTE | 2025-03-18 14:58 | XR_ITS ---
Examination: PA lateral chest 2 views TECHNIQUE: Upright PA lateral chest 2 views Date and time: March 18, 2025 at 1539 hours, comparison August 10, 2024 INDICATIONS: Chest pain shortness of breath dizziness today. FINDINGS: Mild enlargement left ventricle Mild prominence pulmonary vasculature. No lobar pneumonia or pulmonary edema Moderate thoracic spondylosis IMPRESSION: No pneumonia or pulmonary edema
--- NOTE | 2025-03-18 14:58 | EKG_ITS ---
[facility] Test Date: 2025-03-18 Pat Name: ALIVIA MORALES Department: Room: - Gender: Male Dental Service Technician: : 1935 Requested By: Conrad Gutierrez Order Number: [id number] Reading MD: Conrad Gutierrez Measurements Intervals [place] Rate: 82 P: [place]: QRS: 259 QRSD: 105 T: 41 QT: 393 QTc: 460 Interpretive Statements ATRIAL FIBRILLATION POSSIBLE RIGHT VENTRICULAR HYPERTROPHY [SOME/ALL OF: PROMINENT R IN V1, LATE TRANSITION, RAD, MADDY, SSS] INFERIOR MYOCARDIAL INFARCTION , PROBABLY OLD [40+ ms Q WAVE AND/OR ST/T ABNORMALITY IN II/aVF] ANTEROSEPTAL MYOCARDIAL INFARCTION , OF INDETERMINATE AGE [40+ ms Q WAVE IN V1-V4] Compared to ECG 08/11/2024 10:54:47 Incomplete right bundle-branch block no longer present Myocardial infarct finding still present /store/S0/[id number]/[id number].pdf
--- NOTE | 2025-03-18 14:58 | PD.EDRME ---
Rapid Medical Screening Exam E Arrival date/time: 03/18/25 14:28 89-year-old male with a history of CHF, hypertension, presents to the emergency room with a chief complaint of generalized weakness and fatigue x 1 week and shortness of breath x 2 days I have greeted and performed a focused initial assessment of this patient. A comprehensive ED assessment and evaluation of the patient, analysis of all test results, and completion of the medical decision making process will be conducted by additional ED providers. Chief Complaint: Shortness of Breath/Dyspnea Time Seen by Provider: 03/18/25 14:51 Vital signs: Vital Signs Temperature 98.1 F 03/18/25 14:46 Pulse Rate 88 03/18/25 14:46 Respiratory Rate 18 03/18/25 14:46 Blood Pressure 121/68 03/18/25 14:46 Pulse Oximetry (%) 96 03/18/25 14:46 Oxygen Delivery Method Room Air 03/18/25 14:46 Vital signs reviewed by provider: Yes
[2025-03-18 15:25] LABS: Basophils # (Auto) 0.0 Thou/mm3 (0.0-0.2); Basophils % (Auto) 0 % (0-2.5); Eosinophils # (Auto) 0.1 Thou/mm3 (0.0-0.5); Eosinophils % (Auto) 1 % (0-10); Hematocrit 37.0 % (41.0-53.0); Hemoglobin 12.5 g/dL (13.5-16.0); Immature Granulocytes Auto 0.02 Thou/mm3 (0.00-0.00); Lymphocytes # (Auto) 1.9 Thou/mm3 (1.0-4.8); Lymphocytes % (Auto) 29 % (10-50); Mean Corpuscular HGB Conc 33.8 g/dl (31.0-37.0); Mean Corpuscular Hemoglobin 33.2 pg (25.0-35.0); Mean Corpuscular Volume 98 fL (80-100); Monocytes # (Auto) 0.5 Thou/mm3 (0.0-0.8); Monocytes % (Auto) 7 % (0-12); Neutrophils # (Auto) 4.1 Thou/mm3 (1.8-7.7); Neutrophils % (Auto) 62 % (37-80); Nucleated Red Blood Cell # 0.00 Thou/mm3 (0.00-0.00); Nucleated Red Blood Cell % 0 /100 WBC (0); Platelet Count 221 Thou/mm3 (140-440); RDW Standard Deviation 44.4 fL (35.1-43.9); Red Blood Count 3.77 Miln/mm3 (4.50-5.90); White Blood Count 6.5 Thou/mm3 (3.8-10.6)
[2025-03-18 15:41] LABS: INR 1.9 (0.9-1.3); Partial Thromboplastin Time 30.5 Seconds (22.0-36.0); Prothrombin Time 20.3 Seconds (9.0-12.2)
[2025-03-18 15:44] LABS: B-Type Natriuretic Peptide 311 pg/mL (0-100)
[2025-03-18 15:56] LABS: Alanine Aminotransferase 10 U/L (10-49); Albumin, Serum 4.3 gm/dL (3.4-4.8); Albumin/Globulin Ratio 1.6 (1.2-2.2); Alkaline Phosphatase 66 U/L (46-116); Anion Gap 9 (7-16); Aspartate Amino Transferase 14 U/L (0-34); BUN/Creatinine Ratio 18 Ratio (12-20); Bilirubin,Total 1.6 mg/dL (0.3-1.2); Blood Urea Nitrogen 20 mg/dL (9-23); Calcium 9.4 mg/dL (8.3-10.6); Calcium (Corrected) 9.4 mg/dL (8.5-10.1); Carbon Dioxide 27.4 mMol/L (20.0-31.0); Chloride 102 mMol/L (98-107); Creatinine (Component) 1.1 mg/dL (0.6-1.3); Estimated Creatinine Clearance 52.5 mL/min (>60); Free T4 (Free Thyroxine) 1.49 ng/dL (0.89-1.76); Globulin 2.7 gm/dL (2.3-3.5); Glucose 226 mg/dL (74-106); Magnesium 2.0 mg/dL (1.6-2.6); Osmolality,Calculated 285 (275-295); Potassium 4.9 mMol/L (3.4-5.1); Sodium 138 mMol/L (136-145); Thyroid Stimulating Hormone 1.69 uIU/mL (0.55-4.78); Total Protein 7.0 gm/dL (5.7-8.2); Troponin I 0.022 ng/mL (0.0-0.045); eGFR > 60 See Note
[2025-03-18 16:56] LABS: Collection Type, Urine Clean Catch; Squamous Epithelial Cell,Urine 0 /hpf (0-5)
[2025-03-18 17:16] LABS: Bacteria,Urine Rare; Bilirubin,Urine Negative (Negative); Blood,Urine Negative (Negative); Clarity,Urine Turbid (Clear/Hazy); Color,Urine Yellow (Lt Yel-Yel); Culture Indicated,Urine Not Indicated; Glucose, Urine Trace (Negative); Hyaline Casts,Urine < 1 /hpf (0-1); Ketones,Urine Negative (Negative); Leukocyte Esterase,Urine Negative (Negative); Nitrite,Urine Negative (Negative); PH,Urine 5.5 (5.0-7.0); Protein,Urine Negative (Neg - Trace); RBC,Urine 2 /hpf (0-3); Specific Gravity,Urine 1.022 (1.001-1.035); Urobilinogen,Urine 6.0 mg/dL (0.0-1.0); WBC,Urine 2 /hpf (0-5)
--- NOTE | 2025-03-18 18:27 | PC.NURSE ---
no answer when called to be placed in room
--- NOTE | 2025-03-18 18:27 | PD.EDRME ---
Rapid Medical Screening Exam RME Arrival date/time: 03/18/25 14:28 03/18/25 14:28 89-year-old male with a history of CHF, hypertension, presents to the emergency room with a chief complaint of generalized weakness and fatigue x 1 week and shortness of breath x 2 days I have greeted and performed a focused initial assessment of this patient. A comprehensive ED assessment and evaluation of the patient, analysis of all test results, and completion of the medical decision making process will be conducted by additional ED providers. Chief Complaint: Shortness of Breath/Dyspnea Time Seen by Provider: 03/18/25 14:51 Vital signs: Vital Signs Temperature 98.1 F 03/18/25 14:46 Pulse Rate 88 03/18/25 14:46 Respiratory Rate 18 03/18/25 14:46 Blood Pressure 121/68 03/18/25 14:46 Pulse Oximetry (%) 96 03/18/25 14:46 Oxygen Delivery Method Room Air 03/18/25 14:46 RME Narrative: 03/18/25 14:28 89-year-old male with a history of CHF, hypertension, presents to the emergency room with a chief complaint of generalized weakness and fatigue x 1 week and shortness of breath x 2 days I have greeted and performed a focused initial assessment of this patient. A comprehensive ED assessment and evaluation of the patient, analysis of all test results, and completion of the medical decision making process will be conducted by additional ED providers.
--- NOTE | 2025-03-18 19:46 | PC.NURSE ---
no answer at er lobby or outside er to be put to room.
== END 2025-03-18 19:48 | disposition left against medical advice (07) ==
LOC: SERX 15:48
PROVIDERS: Nurse Practitioner Family; Emergency Provider Emergency Medicine; PCP Family Medicine
DX: R06.02 Shortness of breath (principal); R53.1 Weakness; R53.83 Other fatigue; I48.91 Unspecified atrial fibrillation; R07.9 Chest pain, unspecified; R42 Dizziness and giddiness; I11.0 Hypertensive heart disease with heart failure; I50.9 Heart failure, unspecified
CPT/HCPCS: 36415; 71046; 80053; 81001; 83735; 83880; 84439; 84443; 84484; 85025; 85610; 85730; 93005; 99283

== ENCOUNTER → 2025-03-25 | Outpatient (CLI) | payer MEDICARE, BC, SELFPAY ==
[2025-03-25 13:32] LABS: INR 3.6 (0.9-1.3)
[2025-03-25 13:56] LABS: Prothrombin Time 36.0 Seconds (9.0-12.2)
== END | disposition home or self-care (01) ==
PROVIDERS: Internal Medicine; PCP Internal Medicine Cardiovascular Disease; Referring Provider Internal Medicine Cardiovascular Disease; Visit Provider Internal Medicine Cardiovascular Disease
DX: I48.20 Chronic atrial fibrillation, unspecified (principal); I10 Essential (primary) hypertension; I25.118 Atherosclerotic heart disease of native coronary artery with other forms of angina pectoris
CPT/HCPCS: 36415; 85610

== ENCOUNTER → 2025-03-25 | Outpatient (CLI) | payer MEDICARE, BC, SELFPAY ==
--- NOTE | 2025-03-25 11:33 | XR_ITS ---
Examination: CT abdomen without intravenous contrast. Coronal 2-D reconstructions. Sagittal 2-D reconstructions. Date and time of exam:March 25, 2025 1152 hours, comparison October 15, 2022 INDICATIONS: Abnormal weight loss several weeks CTDI: vol (mGy): 21 DLP: (mGycm): 601 Technique: Axial images of the abdomen have been obtained, 3 mm slice thickness, without intravenous contrast 2-D sagittal coronal reconstructions Low dose protocols were performed. One or more of the following dose reduction techniques were used; automated exposure control, adjustment of the mA and/or KV according to patient size, use of iterative reconstruction technique. Findings: Mild enlargement cardiac contour No focal liver lesions No gallstones or gallbladder wall thickening Spleen is not enlarged No pancreatic or adrenal mass Mild renal scar formation, no hydronephrosis or renal calculi Normal appendix No bowel obstruction aorta normal size 12 mm fat-containing umbilical hernia IMPRESSION: Normal gallbladder Negative for pancreatic mass. Mild renal scar formation, no hydronephrosis or renal calculi Normal appendix Aorta normal size, no abdominal lymphadenopathy
--- NOTE | 2025-03-25 11:33 | XR_ITS ---
Examination: CT chest, without intravenous contrast. Sagittal and coronal 2-D reconstructions. Exam date and time: March 25, 2025 1150 hours INDICATIONS: Weight loss and fatigue several weeks COMPARISON: August 11, 2024 CTDI:vol (mGy) 20.6 DLP: (mGycm) 796 Technique: Multiple 3.0 mm axial sections of the chest to been obtained. Bone and lung density settings are obtained. Sagittal and coronal 2-D reconstructions have been obtained. Low dose protocols were performed. One or more of the following dose reduction techniques were used; automated exposure control, adjustment of the mA and/or KV according to patient size, use of iterative reconstruction technique. Findings: Thoracic aortic calcification no aneurysmal dilatation Pulmonary artery segments are mildly enlarged Moderate calcification left anterior descending coronary artery Mild enlargement cardiac contour 4 mm pulmonary nodule right midlung image 170 4 mm pulmonary nodule right middle lobe image 218 3 mm pulmonary nodule left lower lobe image 221 No pneumonia or pulmonary edema. No visualized liver or splenic lesion No gallstones Pancreas is not enlarged Kidneys are partially visualized no hydronephrosis IMPRESSION: Noncalcified pulmonary nodules as above, with this study as baseline recommend 6 month follow-up CT chest without contrast
== END | disposition home or self-care (01) ==
PROVIDERS: PCP Family Medicine; Referring Provider Family Medicine; Visit Provider Family Medicine
DX: R91.8 Other nonspecific abnormal finding of lung field (principal); N28.89 Other specified disorders of kidney and ureter
CPT/HCPCS: 71250; 74150

== ENCOUNTER → 2025-03-28 | Outpatient (CLI) | payer MEDICARE, BC, SELFPAY ==
[2025-03-28 10:29] LABS: INR 2.3 (0.9-1.3); Prothrombin Time 23.7 Seconds (9.0-12.2)
== END | disposition home or self-care (01) ==
LOC: COPL 09:32
PROVIDERS: PCP Family Medicine; Referring Provider Internal Medicine Cardiovascular Disease; Visit Provider Internal Medicine Cardiovascular Disease
DX: I48.20 Chronic atrial fibrillation, unspecified (principal); I10 Essential (primary) hypertension; I25.118 Atherosclerotic heart disease of native coronary artery with other forms of angina pectoris
CPT/HCPCS: 36415; 85610

== ENCOUNTER → 2025-04-08 | Outpatient (CLI) | payer MEDICARE, BC, SELFPAY ==
[2025-04-08 13:47] LABS: Glucose Estimated Average 232 mg/dL (80-131); Hemoglobin A1C 9.7 % Hgb (4.8-6.0)
== END | disposition home or self-care (01) ==
PROVIDERS: PCP Family Medicine; Referring Provider Family Medicine; Visit Provider Family Medicine
DX: E11.65 Type 2 diabetes mellitus with hyperglycemia (principal)
CPT/HCPCS: 36415; 83036

== ENCOUNTER → 2025-05-01 | Outpatient (CLI) | payer MEDICARE, BC, SELFPAY ==
[2025-05-01 14:07] LABS: INR 1.9 (0.9-1.3); Prothrombin Time 19.1 Seconds (9.0-12.2)
== END | disposition home or self-care (01) ==
LOC: COPL 11:01
PROVIDERS: PCP Family Medicine; Referring Provider Internal Medicine Cardiovascular Disease; Visit Provider Internal Medicine Cardiovascular Disease
DX: I48.20 Chronic atrial fibrillation, unspecified (principal); I10 Essential (primary) hypertension; I25.118 Atherosclerotic heart disease of native coronary artery with other forms of angina pectoris
CPT/HCPCS: 36415; 85610

== ENCOUNTER → 2025-05-13 | Outpatient (CLI) | payer MEDICARE, BC, SELFPAY ==
[2025-05-13 09:57] LABS: INR 1.9 (0.9-1.3); Prothrombin Time 19.3 Seconds (9.0-12.2)
[2025-05-13 10:09] LABS: Glucose Estimated Average 177 mg/dL (80-131); Hemoglobin A1C 7.8 % Hgb (4.8-6.0)
== END | disposition home or self-care (01) ==
PROVIDERS: PCP Family Medicine; Referring Provider Internal Medicine Cardiovascular Disease; Visit Provider Family Medicine
DX: E11.65 Type 2 diabetes mellitus with hyperglycemia (principal); I10 Essential (primary) hypertension; I48.20 Chronic atrial fibrillation, unspecified; I25.118 Atherosclerotic heart disease of native coronary artery with other forms of angina pectoris
CPT/HCPCS: 36415; 83036; 85610

== ENCOUNTER → 2025-06-19 | Outpatient (CLI) | payer MEDICARE, BC, SELFPAY ==
[2025-06-19 14:08] LABS: Alanine Aminotransferase 10 U/L (10-49); Albumin, Serum 4.3 gm/dL (3.4-4.8); Albumin/Globulin Ratio 1.5 (1.2-2.2); Alkaline Phosphatase 73 U/L (46-116); Anion Gap 12 (7-16); Aspartate Amino Transferase 13 U/L (0-34); BUN/Creatinine Ratio 18 Ratio (12-20); Bilirubin,Total 1.0 mg/dL (0.3-1.2); Blood Urea Nitrogen 22 mg/dL (9-23); Calcium 9.2 mg/dL (8.3-10.6); Calcium (Corrected) 9.2 mg/dL (8.5-10.1); Carbon Dioxide 26.9 mMol/L (20.0-31.0); Chloride 104 mMol/L (98-107); Creatinine (Component) 1.2 mg/dL (0.6-1.3); Globulin 2.9 gm/dL (2.3-3.5); Glucose 164 mg/dL (74-106); Osmolality,Calculated 292 (275-295); Potassium 4.4 mMol/L (3.4-5.1); Sodium 143 mMol/L (136-145); Total Protein 7.2 gm/dL (5.7-8.2); eGFR 58 See Note
[2025-06-19 14:17] LABS: INR 2.0 (0.9-1.3); Prothrombin Time 20.3 Seconds (9.0-12.2)
[2025-06-19 14:49] LABS: Glucose Estimated Average 146 mg/dL (80-131); Hemoglobin A1C 6.7 % Hgb (4.8-6.0)
== END | disposition home or self-care (01) ==
PROVIDERS: PCP Family Medicine; Referring Provider Internal Medicine Cardiovascular Disease; Visit Provider Family Medicine
DX: I25.118 Atherosclerotic heart disease of native coronary artery with other forms of angina pectoris (principal); I12.9 Hypertensive chronic kidney disease with stage 1 through stage 4 chronic kidney disease, or unspecified chronic kidney disease; E11.22 Type 2 diabetes mellitus with diabetic chronic kidney disease; N18.2 Chronic kidney disease, stage 2 (mild); E11.65 Type 2 diabetes mellitus with hyperglycemia
CPT/HCPCS: 36415; 80053; 83036; 85610